=== PATIENT | female | born 1970 | race American Indian/Alaskan Native ===

== ENCOUNTER 2017-02-12 05:15 | Emergency (ER) | payer SELFPAY ==
[2017-02-12 05:47] LABS: Basophils % (Auto) 0.8 % (0.0-1.8); Eosinophils % (Auto) 1.6 % (0.0-4.3); Hematocrit 35.2 % (30.3-42.9); Hemoglobin 11.2 gm/dl (10.1-14.3); Mean Corpuscular HGB Conc 32 % (30-34); Mean Corpuscular Volume 74 fl (79-97); Platelet Count 338 K/mm3 (140-440); Red Blood Count 4.77 M/mm3 (3.65-5.03); Red Cell Distribution Width 13.4 % (13.2-15.2); White Blood Count 12.4 K/mm3 (4.5-11.0)
[2017-02-12 05:58] LABS: Mean Corpuscular Hemoglobin 24 pg (28-32)
[2017-02-12 06:04] LABS: Alanine Aminotransferase 10 units/L (7-56); Albumin/Globulin Ratio 1.4 %; Alkaline Phosphatase 64 units/L (35-129); Anion Gap 16 mmol/L; BUN/Creatinine Ratio 15; Blood Urea Nitrogen 9 mg/dL (7-17); Calcium 8.9 mg/dL (8.4-10.2); Carbon Dioxide 25 mmol/L (22-30); Chloride 99.4 mmol/L (98-107); Glucose 125 mg/dL (65-100); Lipase 21 units/L (13-60); Potassium 3.9 mmol/L (3.6-5.0); Sodium 136 mmol/L (137-145); Total Protein 6.9 g/dL (6.3-8.2)
[2017-02-12] MEDS ORDERED: ZOFRAN IV ONE ×2 (06:06→08:30)
[2017-02-12] MEDS ORDERED: DILAUDID IV ONE ×2 (06:06→07:47)
[2017-02-12] MEDS ORDERED: NACL 0.9% 1000 ML 1,000 ML ONE (06:13)
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
[2017-02-12] MEDS ORDERED: NACL 0.9% 1000 ML 1,000 ML IV ONE (06:30)
[2017-02-12] MEDS ORDERED: NACL ONE (07:01)
[2017-02-12] MEDS ORDERED: ZOFRAN ONE (08:48)
[2017-02-12 09:43] VITALS: BP 142/87
--- NOTE | 2017-02-12 10:21 | Cat Scan Report ---
FINAL REPORT EXAM: CT ABDOMEN PELVIS W CON HISTORY: lower abdominal pain TECHNIQUE: CT images are acquired through the Abdomen and Pelvis following intravenous administration of contrast. Transaxial, coronal and sagittal reformations are provided. PRIORS: None available FINDINGS: Partially visualized intrathoracic contents are unremarkable. Layering cholelithiasis without pericholecystic stranding. No intra or extrahepatic biliary ductal dilatation. The liver, pancreas, spleen, and adrenal glands are unremarkable. Kidneys show no worrisome lesions, hydronephrosis, or calculi. A couple of benign-appearing renal cysts are noted. Urinary bladder is unremarkable. Mid abdominal small bowel anastomotic sutures. There is mild wall thickening involving the terminal ileum. Diffuse fatty infiltration of the distal small bowel wall. There is circumferential mild bowel wall thickening involving the majority of the colon. Inflammatory stranding and edema are present focally adjacent to the sigmoid colon centered on several diverticula in the left lower quadrant on axial series 3, images 107-112. No pneumoperitoneum. Normal appendix. Aorta is normal in course and caliber. Anteverted uterus with fallopian contraceptive devices. Ventral periumbilical fat containing hernias measure up to 2 cm on axial series 3, image 95. Superficial soft tissues are otherwise unremarkable. No acute or aggressive appearing skeletal findings. IMPRESSION: Findings are most consistent with acute distal sigmoid diverticulitis without evident complication. These are superimposed on is mild diffuse circumferential colonic wall thickening and fatty infiltration of the distal small bowel wall, which may be due to underlying inflammatory bowel disease. Clinical correlation is requested. Colonoscopy follow-up is suggested following treatment for acute symptoms. Cholelithiasis.
== END 2017-02-12 09:45 | disposition home or self-care (01) ==
LOC: ED 05:15
DX: K57.92 Diverticulitis of intestine, part unspecified, without perforation or abscess without bleeding (principal); R10.30 Lower abdominal pain, unspecified; I10 Essential (primary) hypertension
CPT/HCPCS: 36415; 74177; 80053; 83690; 84703; 85025; 96361; 96374; 96375; 96376; 99284; J1170; J2405; J7030; Q9967

== ENCOUNTER 2018-07-07 00:10 | Inpatient (IN) | payer MEDICAID, OTHER ==
[2018-07-07 01:11] LABS: Basophils # (Auto) 0.1 K/mm3 (0.0-0.1); Basophils % (Auto) 0.4 % (0.0-1.8); Eosinophils % (Auto) 0.3 % (0.0-4.3); Hematocrit 28.4 % (30.3-42.9); Hemoglobin 8.9 gm/dl (10.1-14.3); Lymphocytes # (Auto) 0.9 K/mm3 (1.2-5.4); Mean Corpuscular HGB Conc 31 % (30-34); Mean Corpuscular Volume 72 fl (79-97); Monocytes # (Auto) 0.9 K/mm3 (0.0-0.8); Monocytes % (Auto) 7.3 % (0.0-7.3); Platelet Count 384 K/mm3 (140-440); Red Blood Count 3.92 M/mm3 (3.65-5.03); Red Cell Distribution Width 16.4 % (13.2-15.2)
[2018-07-07 01:34] LABS: Alanine Aminotransferase 26 units/L (7-56); Albumin 3.9 g/dL (3.9-5); BUN/Creatinine Ratio 13; Blood Urea Nitrogen 9 mg/dL (7-17); Calcium 9.4 mg/dL (8.4-10.2); Hemolysis Index 0
[2018-07-07 01:59] LABS: Bilirubin,Urine NEG (Negative); Blood,Urine SM (Negative); Color,Urine Yellow (Yellow); Mucus,Urine 2+ /HPF; Urobilinogen,Urine < 2.0 mg/dL (<2.0)
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
[2018-07-07] MEDS ORDERED: ZOFRAN IV ONE ×2 (02:49→04:20)
[2018-07-07] MEDS ORDERED: MORPHINE IV ONE ×2 (03:20→04:19)
[2018-07-07] MEDS ORDERED: NACL 0.9% 1000 ML 1,000 ML IV ONE (03:20)
--- NOTE | 2018-07-07 03:43 | Cat Scan Report ---
PROCEDURE: CT ABDOMEN PELVIS WO CON TECHNIQUE: Routine axial imaging was obtained of the abdomen and pelvis without oral or IV contrast. Sagittal and coronal reconstructions were reviewed. HISTORY: LLQ abdominal pain COMPARISONS: 02/03/2017 FINDINGS: The study is limited without IV contrast. The lung bases are negative for infiltrates or effusions. The gallbladder is normal in size and reveals dependent stones. There are no secondary signs of acute cholecystitis. The liver and biliary tree appear normal. The pancreas, spleen and adrenal glands nahomi ear normal. The kidneys show no evidence of stones or hydronephrosis. There is a stable 9.2 mm fatty density laterally in the right kidney. This may represent a small angiomyolipoma. There are multiple mildly distended loops of small bowel in the pelvis with air-fluid levels. The col on is normal in caliber. There are anastomotic suture lines involving bowel loops in the pelvis. The appendix is not seen with certainty. In the pelvis the uterus and bladder appear normal. There are bi lateral coxa valga wires and adnexa. Adenopathy is not seen. There is a stable small umbilical hernia containing omental fat. To the left of the umbilical hernia is a smaller abdominal wall hernia conta ining omental fat. The skeletal structures do not show any acute changes. IMPRESSION: Multiple mildly distended loops of small bowel in the pelvis with air-fluid levels. Diagnostic consid erations include a nonspecific enteritis as well as a partial mechanical small bowel obstruction. Gallstones. No secondary signs of acute cholecystitis. 9.2 mm fatty cortical density in the right kidney compatible with an incidental angiomyolipoma. Appendix not identified with certainty. Stable small umbilical and small periumbilical hernias both containing omental fat.. This document is electronically signed by Lencho Lieberman MD., July 07 2018 03:41:12 AM ET
[2018-07-07] MEDS ORDERED: ATIVAN IV ONE (05:29)
[2018-07-07] MEDS ORDERED: ATIVAN ONE (05:32)
--- NOTE | 2018-07-07 06:00 | XRay Report ---
PROCEDURE: XR CHEST 1V AP TECHNIQUE: A portable upright view of the chest was obtained. HISTORY: NG tube placement COMPARISONS: None FINDINGS: The heart size and mediastinum appear normal. The lungs are clear. Pleural fluid is not seen. The tip of NG tube is in good position the stomach. IMPRESSION: Satisfactory placement of NG tube. No acute cardiopulmonary process.. This document is electronically signed by Lencho Lieberman MD., July 07 2018 05:58:08 AM ET
[2018-07-07] MEDS: D5NS 1,000 ML IV SCH (08:15)
--- NOTE | 2018-07-07 09:00 | Event Note ---
Date: 07/07/18 Pt sleeping at this time. will return to do consult Pt very dehydrated. Will order additional fluids.
[2018-07-07] MEDS ORDERED: PROVENTIL IH PRN (09:26)
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
[2018-07-07] MEDS ORDERED: SODIUM CHLORIDE FLUSH SYRINGE 10 ML IV PRN (10:30)
[2018-07-07] MEDS ORDERED: TYLENOL PO PRN (10:30)
[2018-07-07] MEDS: ZOFRAN IV PRN ×2 (12:33→19:55)
[2018-07-07] MEDS: MORPHINE IV PRN ×3 (12:33→22:32)
[2018-07-07] MEDS: PEPCID IV SCH ×2 (12:33→21:48)
[2018-07-07] MEDS: SODIUM CHLORIDE FLUSH SYRINGE 10 ML IV SCH ×2 (12:38→21:49)
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
[2018-07-07] MEDS: NACL 0.9% 1000 ML 1,000 ML IV SCH ×2 (15:15→16:18)
[2018-07-07] MEDS: LEVAQUIN 500MG/100ML 500 MG/100 ML BAG IV SCH (17:19)
[2018-07-07] MEDS: FLAGYL 500 MG/100 ML 500 MG/100 ML BAG IV SCH (18:37)
[2018-07-07] MEDS ORDERED: DIFLUCAN/NS 100 MG/50 ML 100 MG/50 ML BAG IV SCH (20:00)
[2018-07-08] MEDS: D5NS 1,000 ML IV SCH (00:14)
[2018-07-08] MEDS: FLAGYL 500 MG/100 ML 500 MG/100 ML BAG IV SCH ×4 (00:15→21:41)
[2018-07-08] MEDS: MORPHINE IV PRN ×5 (03:24→23:45)
[2018-07-08] MEDS: ZOFRAN IV PRN ×3 (03:24→19:41)
[2018-07-08] MEDS: PEPCID IV SCH ×3 (08:43→21:43)
[2018-07-08] MEDS: LEVAQUIN 500MG/100ML 500 MG/100 ML BAG IV SCH ×2 (08:45→09:00)
[2018-07-08] MEDS: SODIUM CHLORIDE FLUSH SYRINGE 10 ML IV SCH ×3 (08:46→21:43)
[2018-07-08 09:06] LABS: Basophils # (Auto) 0.1 K/mm3 (0.0-0.1); Basophils % (Auto) 0.8 % (0.0-1.8); Eosinophils % (Auto) 0.1 % (0.0-4.3); Hematocrit 25.3 % (30.3-42.9); Hemoglobin 7.8 gm/dl (10.1-14.3); Lymphocytes % (Auto) 7.1 % (13.4-35.0); Mean Corpuscular HGB Conc 31 % (30-34); Mean Corpuscular Volume 72 fl (79-97); Monocytes # (Auto) 1.2 K/mm3 (0.0-0.8); Monocytes % (Auto) 8.7 % (0.0-7.3); Platelet Count 337 K/mm3 (140-440); Red Blood Count 3.52 M/mm3 (3.65-5.03); Red Cell Distribution Width 16.4 % (13.2-15.2)
[2018-07-08 09:10] LABS: BUN/Creatinine Ratio 4; Blood Urea Nitrogen 2 mg/dL (7-17); Calcium 8.4 mg/dL (8.4-10.2); Hemolysis Index 7
--- NOTE | 2018-07-08 10:19 | Cat Scan Report ---
CT ABDOMEN PELVIS WITH CONTRAST: HISTORY: Left lower quadrant abdominal pain. COMPARISON: Noncontrast CT abdomen and pelvis performed 07/07/18. TECHNIQUE: Helical CT in 1.25mm intervals following IV contrast. Sagittal and coronal reconstructions. FINDINGS: Lung bases: Normal. Liver: Normal. Biliary system: Multiple small calcified gallstones. No biliary dilatation or inflammation. Pancreas: Normal. Spleen: Normal. Kidneys/ureters/bladder: Within normal limits. 1 cm fat containing lesion in the right kidney is consistent with a lipoma or angiomyolipoma. Adrenal glands: Normal. Aorta: Normal. Intestines: There is a large amount of stool in the right hemicolon. No evidence for dilated bowel or large air-fluid levels. Surgical changes are noted in the left lower quadrant, correlate with history. There appear to be a few diverticula in the sigmoid colon but no convincing evidence of acute inflammation. There is a peripherally enhancing collection in the left lower quadrant measuring up to 3.0 x 2.3 x 5.2 cm. This appears to be within the left anterior pelvic wall. The inferior left rectus muscle appears thickened and edematous. Appendix: Not confidently identified. Pelvic viscera: Normal. Bilateral Essure devices are in place. Ascites: None. Adenopathy: None. Musculoskeletal: The bony structures are intact. Small paraumbilical hernia containing fat is unchanged. IMPRESSION: There is a small fluid collection in the left lower quadrant abdominal wall as outlined above. This appears to involve the inferior left rectus muscle and probably represents an intramuscular abscess. There are a few scattered diverticula in the sigmoid colon. No convincing acute diverticulitis is identified in my opinion.
--- NOTE | 2018-07-08 14:43 | Progress Note ---
Assessment and Plan - Patient Problems (1) Abdominal pain, left lower quadrant Current Visit: Yes Status: Acute Plan to address problem: Pt stable. Pt continues to have LLQ pain and may have more pain today. Will get CT A/P with IV con to further eval the LLQ. Rec: 1) Abx 2) Cont NGT for now 3) CT Abd/Pel with IV contrast today 4) Labs in AM Time=10min Subjective Date of service: 07/08/18 Patient Reports: Positive: still having pain (more today in LLQ), fever. Negative: nausea, vomiting Objective Vital Signs - 12hr 07/08/18 07/08/18 07/08/18 04:07 04:14 07:25 Temperature 101.4 F H 97.8 F 99.8 F H Pulse Rate 118 H 84 111 H Respiratory 16 18 18 Rate Blood Pressure 139/80 116/76 Blood Pressure 136/78 [Left] O2 Sat by Pulse 99 96 99 Oximetry 07/08/18 11:55 Temperature 99.0 F Pulse Rate 105 H Respiratory 18 Rate Blood Pressure Blood Pressure 136/75 [Left] O2 Sat by Pulse 100 Oximetry - General physical appearance other (awakened easily from sleep - appeared medicated) - Eyes normal occular movement - Respiratory normal expansion, normal respiratory effort - Abdomen soft, tender (mildly throughtout - most in LLQ), bowel sounds hypoactive, distended (very minimal), not guarding, not rigid, surgical scars (well healed) - Integumentary no rash, no growths, no abnormal pigmentation - Psychiatric oriented to time, oriented to person, oriented to place, speech is normal, memory intact - Labs 07/08/18 08:00 07/08/18 08:00 Diabetes panel 07/08/18 Range/Units 08:00 Sodium 134 L (137-145) mmol/L Potassium 4.2 (3.6-5.0) mmol/L Chloride 100.0 (98-107) mmol/L Carbon Dioxide 24 (22-30) mmol/L BUN 2 L (7-17) mg/dL Creatinine 0.5 L (0.7-1.2) mg/dL Glucose 120 H (65-100) mg/dL Calcium 8.4 (8.4-10.2) mg/dL Calcium panel 07/08/18 Range/Units 08:00 Calcium 8.4 (8.4-10.2) mg/dL Phosphorus 2.50 (2.5-4.5) mg/dL Pituitary panel 07/08/18 Range/Units 08:00 Sodium 134 L (137-145) mmol/L Potassium 4.2 (3.6-5.0) mmol/L Chloride 100.0 (98-107) mmol/L Carbon Dioxide 24 (22-30) mmol/L BUN 2 L (7-17) mg/dL Creatinine 0.5 L (0.7-1.2) mg/dL Glucose 120 H (65-100) mg/dL Calcium 8.4 (8.4-10.2) mg/dL Adrenal panel 07/08/18 Range/Units 08:00 Sodium 134 L (137-145) mmol/L Potassium 4.2 (3.6-5.0) mmol/L Chloride 100.0 (98-107) mmol/L Carbon Dioxide 24 (22-30) mmol/L BUN 2 L (7-17) mg/dL Creatinine 0.5 L (0.7-1.2) mg/dL Glucose 120 H (65-100) mg/dL Calcium 8.4 (8.4-10.2) mg/dL
--- NOTE | 2018-07-08 19:10 | Progress Note ---
Assessment and Plan Assessment and plan: Abscess abdominal wall rectus muscle Admitted to surgical floor NPO iv fluid Surgery following. I discussed with Dr. Cagle For IR drainage Fever r/o sepsis continue levaquin, flagyl Blood cultures drawn History of diverticulitis patient did not follow up afterwards History of exploratory laparotomy about 20yrs ago leukocyosis monitor Anemia Repeat Hgb in am Full code status History Interval history: Still having abd pain Fever Hospitalist Physical - Physical exam Narrative exam: Gen: Not in acute distress, lying in bed, NG tube in HEENT: Normocephalic, atraumatic Neck: supple, no JVD Heart: S1 and S2 reg, no murmurs, rubs or gallop Lungs: Clear, no crackles Abd: soft, tender left lower abd, non distended, normal BS Ext: No edema, no clubbing, no cyanosis, Neuro: AAO x 3, no focal signs, moves all ext Psych:Normal mood - Constitutional Vitals: Temp Pulse Resp BP Pulse Ox 99.5 F 110 H 17 146/79 100 07/08/18 15:45 07/08/18 15:45 07/08/18 15:45 07/08/18 15:45 07/08/18 15:45 Results - Labs CBC & Chem 7: 07/09/18 05:05 07/09/18 05:05 Labs: Laboratory Last Values WBC 13.4 K/mm3 (4.5-11.0) H 07/08/18 08:00 RBC 3.52 M/mm3 (3.65-5.03) L 07/08/18 08:00 Hgb 7.8 gm/dl (10.1-14.3) L 07/08/18 08:00 Hct 25.3 % (30.3-42.9) L 07/08/18 08:00 MCV 72 fl (79-97) L 07/08/18 08:00 MCH 22 pg (28-32) L 07/08/18 08:00 MCHC 31 % (30-34) 07/08/18 08:00 RDW 16.4 % (13.2-15.2) H 07/08/18 08:00 Plt Count 337 K/mm3 (140-440) 07/08/18 08:00 Lymph % (Auto) 7.1 % (13.4-35.0) L 07/08/18 08:00 [place] % (Auto) 8.7 % (0.0-7.3) H 07/08/18 08:00 Eos % (Auto) 0.1 % (0.0-4.3) 07/08/18 08:00 Baso % (Auto) 0.8 % (0.0-1.8) 07/08/18 08:00 Lymph # 1.0 K/mm3 (1.2-5.4) L 07/08/18 08:00 [place] # 1.2 K/mm3 (0.0-0.8) H 07/08/18 08:00 Eos # 0.0 K/mm3 (0.0-0.4) 07/08/18 08:00 Baso # 0.1 K/mm3 (0.0-0.1) 07/08/18 08:00 Seg Neutrophils % 83.3 % (40.0-70.0) H 07/08/18 08:00 Seg Neutrophils # 11.2 K/mm3 (1.8-7.7) H 07/08/18 08:00 Sodium 134 mmol/L (137-145) L 07/08/18 08:00 Potassium 4.2 mmol/L (3.6-5.0) 07/08/18 08:00 Chloride 100.0 mmol/L (98-107) 07/08/18 08:00 Carbon Dioxide 24 mmol/L (22-30) 07/08/18 08:00 Anion Gap 14 mmol/L 07/08/18 08:00 BUN 2 mg/dL (7-17) L 07/08/18 08:00 Creatinine 0.5 mg/dL (0.7-1.2) L 07/08/18 08:00 Estimated GFR > 60 ml/min 07/08/18 08:00 BUN/Creatinine Ratio 4 % 07/08/18 08:00 Glucose 120 mg/dL (65-100) H 07/08/18 08:00 POC Glucose 103 (70-105) 07/08/18 16:03 Calcium 8.4 mg/dL (8.4-10.2) 07/08/18 08:00 Phosphorus 2.50 mg/dL (2.5-4.5) 07/08/18 08:00 Magnesium 1.70 mg/dL (1.7-2.3) 07/08/18 08:00 Total Bilirubin 0.70 mg/dL (0.1-1.2) 07/07/18 00:43 AST 38 units/L (5-40) 07/07/18 00:43 ALT 26 units/L (7-56) 07/07/18 00:43 Alkaline Phosphatase 82 units/L (35-129) 07/07/18 00:43 Total Protein 7.4 g/dL (6.3-8.2) 07/07/18 00:43 Albumin 3.9 g/dL (3.9-5) 07/07/18 00:43 Albumin/Globulin Ratio 1.1 % 07/07/18 00:43 Lipase 12 units/L (13-60) L 07/07/18 00:43 HCG, Qual Negative (Negative) 07/07/18 00:43 Urine Color Yellow (Yellow) 07/07/18 Unknown Urine Turbidity Clear (Clear) 07/07/18 Unknown Urine pH 5.0 (5.0-7.0) 07/07/18 Unknown Ur Specific [place] 1.039 (1.003-1.030) H 07/07/18 Unknown Urine Protein 30 mg/dl mg/dL (Negative) 07/07/18 Unknown Urine Glucose (UA) Neg mg/dL (Negative) 07/07/18 Unknown Urine Ketones 80 mg/dL (Negative) 07/07/18 Unknown Urine Blood Sm (Negative) 07/07/18 Unknown Urine Nitrite Neg (Negative) 07/07/18 Unknown Urine Bilirubin Neg (Negative) 07/07/18 Unknown Urine Urobilinogen < 2.0 mg/dL (<2.0) 07/07/18 Unknown Ur Leukocyte Esterase Neg (Negative) 07/07/18 Unknown Urine WBC (Auto) 2.0 /HPF (0.0-6.0) 07/07/18 Unknown Urine RBC (Auto) 21.0 /HPF (0.0-6.0) 07/07/18 Unknown U Epithel Cells (Auto) 1.0 /HPF (0-13.0) 07/07/18 Unknown Urine Mucus 2+ /HPF 07/07/18 Unknown Active Medications - Current Medications Current Medications: Generic Name Dose Route Start Last Admin Trade Name Freq PRN Reason Stop Dose Admin Acetaminophen 650 mg 07/07/18 10:30 07/07/18 13:55 Tylenol PO 650 mg Q4H PRN Administration Pain MILD(1-3)/Fever >100.5/TARANGO Albuterol 2.5 mg 07/07/18 09:26 Proventil IH Q4HRT PRN Shortness Of Breath Famotidine 20 mg 07/07/18 11:00 07/08/18 09:01 Pepcid IV Not Given BID [facility] Dextrose/Sodium Chloride 1,000 mls @ 100 mls/hr 07/07/18 08:00 07/08/18 00:14 D5ns IV 100 mls/hr DIRECT [place]UNCAN Administration Levofloxacin/Dextrose 500 mg in 100 mls @ 100 mls/hr 07/07/18 17:00 07/08/18 09:00 Levaquin 500mg/100ml IV Not Given Q24HR D[facility]AN Protocol Metronidazole 500 mg in 100 mls @ 100 mls/hr 07/07/18 17:00 07/08/18 15:11 Flagyl 500 Mg/100 Ml IV 100 mls/hr Q8HR DUNCAN Administration Protocol Morphine Sulfate 2 mg 07/07/18 10:30 07/08/18 15:14 Morphine IV 2 mg Q4H PRN Administration Pain, Moderate (4-6) Ondansetron HCl 4 mg 07/07/18 11:30 07/08/18 11:31 Zofran IV 4 mg Q8H PRN Administration Nausea And Vomiting Sodium Chloride 10 ml 07/07/18 11:00 07/08/18 09:01 Sodium Chloride Flush Syringe 10 Ml IV Not Given BID [place]AN Sodium Chloride 10 ml 07/07/18 10:30 Sodium Chloride Flush Syringe 10 Ml IV PRN PRN LINE FLUSH
[2018-07-09] MEDS: MORPHINE IV PRN ×3 (03:55→14:45)
[2018-07-09 05:56] LABS: Basophils % (Auto) 0.4 % (0.0-1.8); Hematocrit 25.3 % (30.3-42.9); Hemoglobin 8.1 gm/dl (10.1-14.3); Lymphocytes % (Auto) 7.4 % (13.4-35.0); Mean Corpuscular HGB Conc 32 % (30-34); Mean Corpuscular Volume 70 fl (79-97); Monocytes # (Auto) 1.3 K/mm3 (0.0-0.8); Monocytes % (Auto) 10.1 % (0.0-7.3); Platelet Count 373 K/mm3 (140-440); Red Blood Count 3.59 M/mm3 (3.65-5.03); Red Cell Distribution Width 15.8 % (13.2-15.2)
[2018-07-09 06:00] LABS: INR 1.15 (0.87-1.13); Partial Thromboplastin Time 41.6 Sec. (24.2-36.6)
[2018-07-09] MEDS: FLAGYL 500 MG/100 ML 500 MG/100 ML BAG IV SCH ×3 (06:10→21:08)
[2018-07-09 06:25] LABS: BUN/Creatinine Ratio 6; Blood Urea Nitrogen 3 mg/dL (7-17); Calcium 8.8 mg/dL (8.4-10.2); Hemolysis Index 0
[2018-07-09] MEDS: PEPCID IV SCH ×3 (08:48→21:08)
[2018-07-09] MEDS: ZOFRAN IV PRN (08:54)
[2018-07-09] MEDS ORDERED: NARCAN 0.4 MG/1 ML IV PRN (08:56)
[2018-07-09] MEDS: LEVAQUIN 500MG/100ML 500 MG/100 ML BAG IV SCH (08:59)
--- NOTE | 2018-07-09 09:09 | Progress Note ---
Assessment and Plan - Patient Problems (1) Abdominal pain, left lower quadrant Current Visit: Yes Status: Acute Plan to address problem: Pt stable. Appears to be an abscess in the abdominal wall in the LLQ. Have spoken with Dr. Iniguez. He will plan for aspiration today. Will also add [employer] and toradol for pain control. Discussed with Dr. Knight. Rec: 1) Abx 2) Cont NGT for now. Clamp trial today 3) CT guided aspiration of fluid collection today 4) [employer] and toradol Time=10min Subjective Date of service: 07/09/18 Patient Reports: Positive: still having pain, flatus, nausea (minimal). Negative: vomiting Objective Vital Signs - 12hr 07/09/18 07/09/18 07/09/18 00:40 03:47 08:46 Temperature 99.6 F 99.5 F Pulse Rate 107 H 105 H Respiratory 18 18 20 Rate Blood Pressure 150/84 137/83 O2 Sat by Pulse 100 97 Oximetry - General physical appearance no distress, no pain, other (looks slightly better) - Respiratory normal expansion, normal respiratory effort - Abdomen soft, tender (less in rest of abdomen), bowel sounds hypoactive, not distended, not guarding, not rigid - Integumentary no rash, no growths, no abnormal pigmentation - Psychiatric oriented to time, oriented to person, oriented to place, speech is normal, memory intact - Labs 07/09/18 05:05 07/09/18 05:05 Diabetes panel 07/08/18 07/09/18 Range/Units 08:00 05:05 Sodium 134 L 137 (137-145) mmol/L Potassium 4.2 3.3 L D (3.6-5.0) mmol/L Chloride 100.0 97.9 L (98-107) mmol/L Carbon Dioxide 24 24 (22-30) mmol/L BUN 2 L 3 L (7-17) mg/dL Creatinine 0.5 L 0.5 L (0.7-1.2) mg/dL Glucose 120 H 113 H (65-100) mg/dL Calcium 8.4 8.8 (8.4-10.2) mg/dL Calcium panel 07/08/18 07/09/18 Range/Units 08:00 05:05 Calcium 8.4 8.8 (8.4-10.2) mg/dL Phosphorus 2.50 (2.5-4.5) mg/dL Pituitary panel 07/08/18 07/09/18 Range/Units 08:00 05:05 Sodium 134 L 137 (137-145) mmol/L Potassium 4.2 3.3 L D (3.6-5.0) mmol/L Chloride 100.0 97.9 L (98-107) mmol/L Carbon Dioxide 24 24 (22-30) mmol/L BUN 2 L 3 L (7-17) mg/dL Creatinine 0.5 L 0.5 L (0.7-1.2) mg/dL Glucose 120 H 113 H (65-100) mg/dL Calcium 8.4 8.8 (8.4-10.2) mg/dL Adrenal panel 07/08/18 07/09/18 Range/Units 08:00 05:05 Sodium 134 L 137 (137-145) mmol/L Potassium 4.2 3.3 L D (3.6-5.0) mmol/L Chloride 100.0 97.9 L (98-107) mmol/L Carbon Dioxide 24 24 (22-30) mmol/L BUN 2 L 3 L (7-17) mg/dL Creatinine 0.5 L 0.5 L (0.7-1.2) mg/dL Glucose 120 H 113 H (65-100) mg/dL Calcium 8.4 8.8 (8.4-10.2) mg/dL - Imaging CT scan - abdomen: report reviewed, image reviewed CT Scan - head: report reviewed, image reviewed
[2018-07-09] MEDS: SODIUM CHLORIDE FLUSH SYRINGE 10 ML IV SCH (09:31)
--- NOTE | 2018-07-09 09:40 | Progress Note ---
Assessment and Plan Assessment and plan: Abscess abdominal wall rectus muscle Admitted to surgical floor NPO iv fluid Surgery following. I discussed with Dr. Cagle For IR drainage today Fever Hypokalemia. Replace Sepsis,present on admission continue levaquin, flagyl Blood cultures drawn History of diverticulitis patient did not follow up afterwards History of exploratory laparotomy about 20yrs ago leukocyosis monitor Anemia Repeat Hgb in am Full code status History Interval history: Still having abdominal pain Fever Hospitalist Physical - Physical exam Narrative exam: Gen: Not in acute distress, lying in bed, NG tube in HEENT: Normocephalic, atraumatic Neck: supple, no JVD Heart: S1 and S2 reg, no murmurs, rubs or gallop Lungs: Clear, no crackles Abd: soft, tender left lower abd, non distended, normal BS Ext: No edema, no clubbing, no cyanosis, Neuro: AAO x 3, no focal signs, moves all ext Psych:Normal mood - Constitutional Vitals: Temp Pulse Resp BP Pulse Ox 99.5 F 105 H 20 137/83 97 07/09/18 03:47 07/09/18 03:47 07/09/18 08:46 07/09/18 03:47 07/09/18 03:47 Results - Labs CBC & Chem 7: 07/09/18 05:05 07/09/18 05:05 Labs: Laboratory Last Values WBC 13.1 K/mm3 (4.5-11.0) H 07/09/18 05:05 RBC 3.59 M/mm3 (3.65-5.03) L 07/09/18 05:05 Hgb 8.1 gm/dl (10.1-14.3) L 07/09/18 05:05 Hct 25.3 % (30.3-42.9) L 07/09/18 05:05 MCV 70 fl (79-97) L 07/09/18 05:05 MCH 22 pg (28-32) L 07/09/18 05:05 MCHC 32 % (30-34) 07/09/18 05:05 RDW 15.8 % (13.2-15.2) H 07/09/18 05:05 Plt Count 373 K/mm3 (140-440) 07/09/18 05:05 Lymph % (Auto) 7.4 % (13.4-35.0) L 07/09/18 05:05 [place] % (Auto) 10.1 % (0.0-7.3) H 07/09/18 05:05 Eos % (Auto) 0.0 % (0.0-4.3) 07/09/18 05:05 Baso % (Auto) 0.4 % (0.0-1.8) 07/09/18 05:05 Lymph # 1.0 K/mm3 (1.2-5.4) L 07/09/18 05:05 [place] # 1.3 K/mm3 (0.0-0.8) H 07/09/18 05:05 Eos # 0.0 K/mm3 (0.0-0.4) 07/09/18 05:05 Baso # 0.0 K/mm3 (0.0-0.1) 07/09/18 05:05 Seg Neutrophils % 82.1 % (40.0-70.0) H 07/09/18 05:05 Seg Neutrophils # 10.8 K/mm3 (1.8-7.7) H 07/09/18 05:05 PT 15.4 Sec. (12.2-14.9) H 07/09/18 05:05 INR 1.15 (0.87-1.13) H 07/09/18 05:05 APTT 41.6 Sec. (24.2-36.6) H 07/09/18 05:05 Sodium 137 mmol/L (137-145) 07/09/18 05:05 Potassium 3.3 mmol/L (3.6-5.0) L D 07/09/18 05:05 Chloride 97.9 mmol/L (98-107) L 07/09/18 05:05 Carbon Dioxide 24 mmol/L (22-30) 07/09/18 05:05 Anion Gap 18 mmol/L 07/09/18 05:05 BUN 3 mg/dL (7-17) L 07/09/18 05:05 Creatinine 0.5 mg/dL (0.7-1.2) L 07/09/18 05:05 Estimated GFR > 60 ml/min 07/09/18 05:05 BUN/Creatinine Ratio 6 % 07/09/18 05:05 Glucose 113 mg/dL (65-100) H 07/09/18 05:05 POC Glucose 114 (70-105) H 07/08/18 22:22 Calcium 8.8 mg/dL (8.4-10.2) 07/09/18 05:05 Phosphorus 2.50 mg/dL (2.5-4.5) 07/08/18 08:00 Magnesium 1.70 mg/dL (1.7-2.3) 07/08/18 08:00 Total Bilirubin 0.70 mg/dL (0.1-1.2) 07/07/18 00:43 AST 38 units/L (5-40) 07/07/18 00:43 ALT 26 units/L (7-56) 07/07/18 00:43 Alkaline Phosphatase 82 units/L (35-129) 07/07/18 00:43 Total Protein 7.4 g/dL (6.3-8.2) 07/07/18 00:43 Albumin 3.9 g/dL (3.9-5) 07/07/18 00:43 Albumin/Globulin Ratio 1.1 % 07/07/18 00:43 Lipase 12 units/L (13-60) L 07/07/18 00:43 HCG, Qual Negative (Negative) 07/07/18 00:43 Urine Color Yellow (Yellow) 07/07/18 Unknown Urine Turbidity Clear (Clear) 07/07/18 Unknown Urine pH 5.0 (5.0-7.0) 07/07/18 Unknown Ur Specific [place] 1.039 (1.003-1.030) H 07/07/18 Unknown Urine Protein 30 mg/dl mg/dL (Negative) 07/07/18 Unknown Urine Glucose (UA) Neg mg/dL (Negative) 07/07/18 Unknown Urine Ketones 80 mg/dL (Negative) 07/07/18 Unknown Urine Blood Sm (Negative) 07/07/18 Unknown Urine Nitrite Neg (Negative) 07/07/18 Unknown Urine Bilirubin Neg (Negative) 07/07/18 Unknown Urine Urobilinogen < 2.0 mg/dL (<2.0) 07/07/18 Unknown Ur Leukocyte Esterase Neg (Negative) 07/07/18 Unknown Urine WBC (Auto) 2.0 /HPF (0.0-6.0) 07/07/18 Unknown Urine RBC (Auto) 21.0 /HPF (0.0-6.0) 07/07/18 Unknown U Epithel Cells (Auto) 1.0 /HPF (0-13.0) 07/07/18 Unknown Urine Mucus 2+ /HPF 07/07/18 Unknown Active Medications - Current Medications Current Medications: Generic Name Dose Route Start Last Admin Trade Name Freq PRN Reason Stop Dose Admin Acetaminophen 650 mg 07/07/18 10:30 07/07/18 13:55 Tylenol PO 650 mg Q4H PRN Administration Pain MILD(1-3)/Fever >100.5/TARANGO Albuterol 2.5 mg 07/07/18 09:26 Proventil IH Q4HRT PRN Shortness Of Breath Famotidine 20 mg 07/07/18 11:00 07/09/18 08:48 Pepcid IV 20 mg BID DUNCAN Administration Hydromorphone/Sodium Chloride 0 mg 07/09/18 09:00 Dilaudid Puncher 6mg/30ml IV DIRECT DUNCAN Protocol Dextrose/Sodium Chloride 1,000 mls @ 100 mls/hr 07/07/18 08:00 07/08/18 00:14 D5ns IV 100 mls/hr DIRECT DUNCAN Administration Levofloxacin/Dextrose 500 mg in 100 mls @ 100 mls/hr 07/07/18 17:00 07/09/18 08:59 Levaquin 500mg/100ml IV 100 mls/hr Q24HR DUNCAN Administration Protocol Metronidazole 500 mg in 100 mls @ 100 mls/hr 07/07/18 17:00 07/09/18 06:10 Flagyl 500 Mg/100 Ml IV 100 mls/hr Q8HR DUNCAN Administration Protocol Sodium Chloride 1,000 mls @ 42 mls/hr 07/09/18 09:00 Nacl 0.9% 1000 Ml IV DIRECT DUNCAN Ketorolac Tromethamine 30 mg 07/09/18 18:00 Toradol IV 07/14/18 17:59 Q6HR DUNCAN Morphine Sulfate 2 mg 07/07/18 10:30 07/09/18 08:46 Morphine IV 2 mg Q4H PRN Administration Pain, Moderate (4-6) Naloxone HCl 0.1 mg 07/09/18 08:56 Narcan 0.4 Mg/1 Ml IV Q2MIN PRN Res Rate </= 8 or 02 SAT < 92% Ondansetron HCl 4 mg 07/07/18 11:30 07/09/18 08:54 Zofran IV 4 mg Q8H PRN Administration Nausea And Vomiting Sodium Chloride 10 ml 07/07/18 11:00 07/08/18 21:43 Sodium Chloride Flush Syringe 10 Ml IV 10 ml BID DUNCAN Administration Sodium Chloride 10 ml 07/07/18 10:30 Sodium Chloride Flush Syringe 10 Ml IV PRN PRN LINE FLUSH
[2018-07-09] MEDS ORDERED: VERSED IV ONE ×2 (10:57→11:16)
[2018-07-09] MEDS ORDERED: SUBLIMAZE IV ONE (10:57)
[2018-07-09] MEDS ORDERED: NACL 0.9% 500 ML 0 ML ONE (11:05)
[2018-07-09] MEDS ORDERED: SUBLIMAZE ONE (11:16)
[2018-07-09] MEDS ORDERED: XYLOCAINE 1%/ EPI 1:100,000 INFILTRATI ONE ×2 (12:19→12:20)
--- NOTE | 2018-07-09 13:02 | Post Operative Note ---
Date of procedure: 07/09/18 Pre-op diagnosis: Fluid collection of the abdomen LLQ Post-op diagnosis: same Findings: Purulent material and old blood aspirated - 2-3 mL Procedure: CT guided guided aspiration of LLQ fluid collection Anesthesia: local (w/ conscious sedation) Surgeon: MAN STANFORD Estimated blood loss: minimal Condition: stable Disposition: floor
[2018-07-09] MEDS: DILAUDID PCA 6MG/30ML IV SCH (16:33)
[2018-07-09] MEDS: TORADOL IV SCH (19:15)
[2018-07-10] MEDS: TORADOL IV SCH ×4 (00:50→22:34)
[2018-07-10] MEDS: SODIUM CHLORIDE FLUSH SYRINGE 10 ML IV SCH ×3 (00:50→22:35)
[2018-07-10] MEDS: FLAGYL 500 MG/100 ML 500 MG/100 ML BAG IV SCH ×3 (05:35→22:31)
[2018-07-10] MEDS: NACL 0.9% 1000 ML 1,000 ML IV SCH (05:35)
[2018-07-10 06:33] LABS: Hematocrit 25.7 % (30.3-42.9); Mean Corpuscular HGB Conc 31 % (30-34); Mean Corpuscular Volume 71 fl (79-97); Platelet Count 423 K/mm3 (140-440); Red Blood Count 3.63 M/mm3 (3.65-5.03)
[2018-07-10 07:02] LABS: BUN/Creatinine Ratio 14; Blood Urea Nitrogen 7 mg/dL (7-17); Calcium 8.7 mg/dL (8.4-10.2); Hemolysis Index 0
[2018-07-10] MEDS: PEPCID IV SCH ×2 (11:59→22:33)
[2018-07-10] MEDS: LEVAQUIN 500MG/100ML 500 MG/100 ML BAG IV SCH (11:59)
--- NOTE | 2018-07-10 12:30 | Progress Note ---
Assessment and Plan Assessment and plan: Abscess abdominal wall rectus muscle s/p IR drainage yesterday 07/09 Started on clear liq diet Surgery following. Hypokalemia. Replace Sepsis,present on admission continue levaquin, flagyl Blood cultures drawn Cultures from abscess pending History of diverticulitis patient did not follow up afterwards History of exploratory laparotomy about 20yrs ago leukocyosis due to sepsis monitor Fever, improved no fever for 2 days Anemia Repeat Hgb in am Full code status History Interval history: s/p IR drainage of abscess abdominal wall yesterday, less abd pain on PCP pump Hospitalist Physical - Physical exam Narrative exam: Gen: Not in acute distress, lying in bed, NG tube in HEENT: Normocephalic, atraumatic Neck: supple, no JVD Heart: S1 and S2 reg, no murmurs, rubs or gallop Lungs: Clear, no crackles Abd: soft, mild tender left lower abd, dressing over abd, non distended, normal BS Ext: No edema, no clubbing, no cyanosis, Neuro: AAO x 3, no focal signs, moves all ext Psych:Normal mood - Constitutional Vitals: Temp Pulse Resp BP Pulse Ox 98.3 F 94 H 18 119/77 99 07/10/18 07:25 07/10/18 07:25 07/10/18 08:33 07/10/18 07:25 07/10/18 08:41 Results - Labs CBC & Chem 7: 07/10/18 06:14 07/10/18 06:14 Labs: Laboratory Last Values WBC 11.3 K/mm3 (4.5-11.0) H 07/10/18 06:14 RBC 3.63 M/mm3 (3.65-5.03) L 07/10/18 06:14 Hgb 8.0 gm/dl (10.1-14.3) L 07/10/18 06:14 Hct 25.7 % (30.3-42.9) L 07/10/18 06:14 MCV 71 fl (79-97) L 07/10/18 06:14 MCH 22 pg (28-32) L 07/10/18 06:14 MCHC 31 % (30-34) 07/10/18 06:14 RDW 16.0 % (13.2-15.2) H 07/10/18 06:14 Plt Count 423 K/mm3 (140-440) 07/10/18 06:14 Lymph % (Auto) 7.4 % (13.4-35.0) L 07/09/18 05:05 [place] % (Auto) 10.1 % (0.0-7.3) H 07/09/18 05:05 Eos % (Auto) 0.0 % (0.0-4.3) 07/09/18 05:05 Baso % (Auto) 0.4 % (0.0-1.8) 07/09/18 05:05 Lymph # 1.0 K/mm3 (1.2-5.4) L 07/09/18 05:05 [place] # 1.3 K/mm3 (0.0-0.8) H 07/09/18 05:05 Eos # 0.0 K/mm3 (0.0-0.4) 07/09/18 05:05 Baso # 0.0 K/mm3 (0.0-0.1) 07/09/18 05:05 Seg Neutrophils % 82.1 % (40.0-70.0) H 07/09/18 05:05 Seg Neutrophils # 10.8 K/mm3 (1.8-7.7) H 07/09/18 05:05 PT 15.4 Sec. (12.2-14.9) H 07/09/18 05:05 INR 1.15 (0.87-1.13) H 07/09/18 05:05 APTT 41.6 Sec. (24.2-36.6) H 07/09/18 05:05 Sodium 141 mmol/L (137-145) 07/10/18 06:14 Potassium 3.6 mmol/L (3.6-5.0) 07/10/18 06:14 Chloride 100.8 mmol/L (98-107) 07/10/18 06:14 Carbon Dioxide 22 mmol/L (22-30) 07/10/18 06:14 Anion Gap 22 mmol/L 07/10/18 06:14 BUN 7 mg/dL (7-17) 07/10/18 06:14 Creatinine 0.5 mg/dL (0.7-1.2) L 07/10/18 06:14 Estimated GFR > 60 ml/min 07/10/18 06:14 BUN/Creatinine Ratio 14 % 07/10/18 06:14 Glucose 94 mg/dL (65-100) 07/10/18 06:14 POC Glucose 114 (70-105) H 07/08/18 22:22 Lactic Acid 0.60 mmol/L (0.7-2.0) L 07/09/18 17:41 Calcium 8.7 mg/dL (8.4-10.2) 07/10/18 06:14 Phosphorus 2.50 mg/dL (2.5-4.5) 07/08/18 08:00 Magnesium 1.70 mg/dL (1.7-2.3) 07/08/18 08:00 Total Bilirubin 0.70 mg/dL (0.1-1.2) 07/07/18 00:43 AST 38 units/L (5-40) 07/07/18 00:43 ALT 26 units/L (7-56) 07/07/18 00:43 Alkaline Phosphatase 82 units/L (35-129) 07/07/18 00:43 Total Protein 7.4 g/dL (6.3-8.2) 07/07/18 00:43 Albumin 3.9 g/dL (3.9-5) 07/07/18 00:43 Albumin/Globulin Ratio 1.1 % 07/07/18 00:43 Lipase 12 units/L (13-60) L 07/07/18 00:43 HCG, Qual Negative (Negative) 07/07/18 00:43 Urine Color Yellow (Yellow) 07/07/18 Unknown Urine Turbidity Clear (Clear) 07/07/18 Unknown Urine pH 5.0 (5.0-7.0) 07/07/18 Unknown Ur Specific [place] 1.039 (1.003-1.030) H 07/07/18 Unknown Urine Protein 30 mg/dl mg/dL (Negative) 07/07/18 Unknown Urine Glucose (UA) Neg mg/dL (Negative) 07/07/18 Unknown Urine Ketones 80 mg/dL (Negative) 07/07/18 Unknown Urine Blood Sm (Negative) 07/07/18 Unknown Urine Nitrite Neg (Negative) 07/07/18 Unknown Urine Bilirubin Neg (Negative) 07/07/18 Unknown Urine Urobilinogen < 2.0 mg/dL (<2.0) 07/07/18 Unknown Ur Leukocyte Esterase Neg (Negative) 07/07/18 Unknown Urine WBC (Auto) 2.0 /HPF (0.0-6.0) 07/07/18 Unknown Urine RBC (Auto) 21.0 /HPF (0.0-6.0) 07/07/18 Unknown U Epithel Cells (Auto) 1.0 /HPF (0-13.0) 07/07/18 Unknown Urine Mucus 2+ /HPF 07/07/18 Unknown Active Medications - Current Medications Current Medications: Generic Name Dose Route Start Last Admin Trade Name Freq PRN Reason Stop Dose Admin Acetaminophen 650 mg 07/07/18 10:30 07/07/18 13:55 Tylenol PO 650 mg Q4H PRN Administration Pain MILD(1-3)/Fever >100.5/TARANGO Albuterol 2.5 mg 07/07/18 09:26 Proventil IH Q4HRT PRN Shortness Of Breath Famotidine 20 mg 07/07/18 11:00 07/10/18 11:59 Pepcid IV 20 mg BID DUNCAN Administration Hydromorphone/Sodium Chloride 0 mg 07/09/18 09:00 07/09/18 16:33 Dilaudid Supervisor Transferring [employer]ing 6mg/30ml IV 0.2 mg DIRECT DUNCAN Administration Protocol Dextrose/Sodium Chloride 1,000 mls @ 100 mls/hr 07/07/18 08:00 07/08/18 00:14 D5ns IV 100 mls/hr DIRECT DUNCAN Administration Levofloxacin/Dextrose 500 mg in 100 mls @ 100 mls/hr 07/07/18 17:00 07/10/18 11:59 Levaquin 500mg/100ml IV 100 mls/hr Q24HR DUNCAN Administration Protocol Metronidazole 500 mg in 100 mls @ 100 mls/hr 07/07/18 17:00 07/10/18 07:26 Flagyl 500 Mg/100 Ml IV Infused Q8HR DUNCAN Infusion Protocol Sodium Chloride 1,000 mls @ 42 mls/hr 07/09/18 09:00 07/10/18 05:35 Nacl 0.9% 1000 Ml IV 42 mls/hr DIRECT DUNCAN Administration Ketorolac Tromethamine 30 mg 07/09/18 18:00 07/10/18 05:35 Toradol IV 07/14/18 17:59 30 mg Q6HR DUNCAN Administration Morphine Sulfate 2 mg 07/07/18 10:30 07/09/18 14:45 Morphine IV 2 mg Q4H PRN Administration Pain, Moderate (4-6) Naloxone HCl 0.1 mg 07/09/18 08:56 Narcan 0.4 Mg/1 Ml IV Q2MIN PRN Res Rate </= 8 or 02 SAT < 92% Ondansetron HCl 4 mg 07/07/18 11:30 07/09/18 08:54 Zofran IV 4 mg Q8H PRN Administration Nausea And Vomiting Sodium Chloride 10 ml 07/07/18 11:00 07/10/18 11:59 Sodium Chloride Flush Syringe 10 Ml IV 10 ml BID DUNCAN Administration Sodium Chloride 10 ml 07/07/18 10:30 Sodium Chloride Flush Syringe 10 Ml IV PRN PRN LINE FLUSH
--- NOTE | 2018-07-10 13:48 | Progress Note ---
Assessment and Plan (1) Abdominal pain, left lower quadrant Current Visit: Yes Status: Acute Plan to address problem: Pt stable. S/P drainage of abscess of abdominal wall by Dr. Iniguez. Rec: 1) Abx 2) continue clear liquids, adv to full in am 3) follow up cultures 4) will likely dc FEATHER STITCHER in am and start PO abx 5) Claritin D for sinuses Thank you, please call with questions Subjective Date of service: 07/10/18 Narrative: Pt seen and examined. c/o headache due to sinus pressure. No abdominal pain, f/c, vomiting. She has not been ambulating due. She has been passing flatus and having loose BMs. Tolerating clear liquid diet Objective Vital Signs - 12hr 07/10/18 07/10/18 07/10/18 02:33 04:33 04:36 Temperature 97.8 F Pulse Rate 82 Respiratory 17 17 16 Rate Blood Pressure 127/71 Blood Pressure [Left] O2 Sat by Pulse 99 Oximetry 07/10/18 07/10/18 07/10/18 06:33 07:25 08:33 Temperature 98.3 F Pulse Rate 94 H Respiratory 17 18 18 Rate Blood Pressure Blood Pressure 119/77 [Left] O2 Sat by Pulse 99 Oximetry 07/10/18 07/10/18 08:41 11:45 Temperature 98.4 F Pulse Rate 91 H Respiratory 18 Rate Blood Pressure Blood Pressure 144/80 [Left] O2 Sat by Pulse 99 100 Oximetry - General physical appearance Narrative Exam: Gen: AAOx3. NAD CV: s1, S2+ resp; even and unlabored Abd: soft, NT, ND Ext: no c/c/e - Labs 07/10/18 06:14 07/10/18 06:14 Diabetes panel 07/10/18 Range/Units 06:14 Sodium 141 (137-145) mmol/L Potassium 3.6 (3.6-5.0) mmol/L Chloride 100.8 (98-107) mmol/L Carbon Dioxide 22 (22-30) mmol/L BUN 7 (7-17) mg/dL Creatinine 0.5 L (0.7-1.2) mg/dL Glucose 94 (65-100) mg/dL Calcium 8.7 (8.4-10.2) mg/dL Calcium panel 07/10/18 Range/Units 06:14 Calcium 8.7 (8.4-10.2) mg/dL Pituitary panel 07/10/18 Range/Units 06:14 Sodium 141 (137-145) mmol/L Potassium 3.6 (3.6-5.0) mmol/L Chloride 100.8 (98-107) mmol/L Carbon Dioxide 22 (22-30) mmol/L BUN 7 (7-17) mg/dL Creatinine 0.5 L (0.7-1.2) mg/dL Glucose 94 (65-100) mg/dL Calcium 8.7 (8.4-10.2) mg/dL Adrenal panel 07/10/18 Range/Units 06:14 Sodium 141 (137-145) mmol/L Potassium 3.6 (3.6-5.0) mmol/L Chloride 100.8 (98-107) mmol/L Carbon Dioxide 22 (22-30) mmol/L BUN 7 (7-17) mg/dL Creatinine 0.5 L (0.7-1.2) mg/dL Glucose 94 (65-100) mg/dL Calcium 8.7 (8.4-10.2) mg/dL
[2018-07-10] MEDS: CLARITIN-D 24HR PO SCH (16:09)
[2018-07-10] MEDS: ZOFRAN IV PRN (20:11)
[2018-07-10] MEDS: DILAUDID PCA 6MG/30ML IV SCH (20:35)
[2018-07-11] MEDS: TORADOL IV SCH ×4 (00:25→17:42)
[2018-07-11] MEDS: D5NS 1,000 ML IV SCH (02:21)
[2018-07-11] MEDS: NACL 0.9% 1000 ML 1,000 ML IV SCH (02:29)
[2018-07-11 04:47] LABS: Hematocrit 23.9 % (30.3-42.9); Hemoglobin 7.6 gm/dl (10.1-14.3); Mean Corpuscular HGB Conc 32 % (30-34); Mean Corpuscular Volume 71 fl (79-97); Platelet Count 444 K/mm3 (140-440); Red Cell Distribution Width 16.5 % (13.2-15.2)
[2018-07-11 05:09] LABS: BUN/Creatinine Ratio 10; Blood Urea Nitrogen 4 mg/dL (7-17); Calcium 8.5 mg/dL (8.4-10.2); Hemolysis Index 0
[2018-07-11] MEDS: FLAGYL 500 MG/100 ML 500 MG/100 ML BAG IV SCH ×3 (05:27→22:02)
[2018-07-11] MEDS: PEPCID IV SCH ×2 (09:34→22:02)
[2018-07-11] MEDS: CLARITIN-D 24HR PO SCH ×2 (09:34→09:35)
[2018-07-11] MEDS: LEVAQUIN 500MG/100ML 500 MG/100 ML BAG IV SCH (09:34)
[2018-07-11] MEDS: SODIUM CHLORIDE FLUSH SYRINGE 10 ML IV SCH ×2 (09:35→22:02)
[2018-07-11] MEDS: ZOFRAN IV PRN ×2 (10:11→22:28)
[2018-07-11] MEDS: KCL 10MEQ/100ML 10 MEQ/100 ML BAG IV SCH ×2 (11:09→21:25)
--- NOTE | 2018-07-11 11:20 | Progress Note ---
Assessment and Plan Assessment and plan: Abscess abdominal wall rectus muscle s/p IR drainage yesterday 07/09 Started on clear liq diet Surgery following. 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 Replace Constipation Give Miralax prn Sepsis,present on admission continue levaquin, flagyl Blood cultures drawn Cultures from abscess Beta hemolytic strep group C History of diverticulitis patient did not follow up afterwards History of exploratory laparotomy about 20yrs ago leukocyosis due to sepsis monitor Fever resolved Anemia Repeat Hgb in am Full code status History Interval history: s/p IR drainage of abscess abdominal wall yesterday, less abd pain on PCP pump nausea constipation Hospitalist Physical - Physical exam Narrative exam: Gen: Not in acute distress, lying in bed, NG tube in HEENT: Normocephalic, atraumatic Neck: supple, no JVD Heart: S1 and S2 reg, no murmurs, rubs or gallop Lungs: Clear, no crackles Abd: soft, mild tender left lower abd, dressing over abd, non distended, normal BS Ext: No edema, no clubbing, no cyanosis, Neuro: AAO x 3, no focal signs, moves all ext Psych:Normal mood - Constitutional Vitals: Temp Pulse Resp BP Pulse Ox 97.8 F 74 17 160/87 96 07/11/18 07:45 07/11/18 07:45 07/11/18 10:00 07/11/18 07:45 07/11/18 07:45 Results - Labs CBC & Chem 7: 07/11/18 04:21 07/11/18 04:21 Labs: Laboratory Last Values WBC 7.8 K/mm3 (4.5-11.0) 07/11/18 04:21 RBC 3.40 M/mm3 (3.65-5.03) L 07/11/18 04:21 Hgb 7.6 gm/dl (10.1-14.3) L 07/11/18 04:21 Hct 23.9 % (30.3-42.9) L 07/11/18 04:21 MCV 71 fl (79-97) L 07/11/18 04:21 MCH 22 pg (28-32) L 07/11/18 04:21 MCHC 32 % (30-34) 07/11/18 04:21 RDW 16.5 % (13.2-15.2) H 07/11/18 04:21 Plt Count 444 K/mm3 (140-440) H 07/11/18 04:21 Lymph % (Auto) 7.4 % (13.4-35.0) L 07/09/18 05:05 [place] % (Auto) 10.1 % (0.0-7.3) H 07/09/18 05:05 Eos % (Auto) 0.0 % (0.0-4.3) 07/09/18 05:05 Baso % (Auto) 0.4 % (0.0-1.8) 07/09/18 05:05 Lymph # 1.0 K/mm3 (1.2-5.4) L 07/09/18 05:05 [place] # 1.3 K/mm3 (0.0-0.8) H 07/09/18 05:05 Eos # 0.0 K/mm3 (0.0-0.4) 07/09/18 05:05 Baso # 0.0 K/mm3 (0.0-0.1) 07/09/18 05:05 Seg Neutrophils % 82.1 % (40.0-70.0) H 07/09/18 05:05 Seg Neutrophils # 10.8 K/mm3 (1.8-7.7) H 07/09/18 05:05 PT 15.4 Sec. (12.2-14.9) H 07/09/18 05:05 INR 1.15 (0.87-1.13) H 07/09/18 05:05 APTT 41.6 Sec. (24.2-36.6) H 07/09/18 05:05 Sodium 135 mmol/L (137-145) L 07/11/18 04:21 Potassium 3.3 mmol/L (3.6-5.0) L 07/11/18 04:21 Chloride 97.7 mmol/L (98-107) L 07/11/18 04:21 Carbon Dioxide 23 mmol/L (22-30) 07/11/18 04:21 Anion Gap 18 mmol/L 07/11/18 04:21 BUN 4 mg/dL (7-17) L 07/11/18 04:21 Creatinine 0.4 mg/dL (0.7-1.2) L 07/11/18 04:21 Estimated GFR > 60 ml/min 07/11/18 04:21 BUN/Creatinine Ratio 10 % 07/11/18 04:21 Glucose 90 mg/dL (65-100) 07/11/18 04:21 POC Glucose 91 (70-105) 07/10/18 16:31 Lactic Acid 0.60 mmol/L (0.7-2.0) L 07/09/18 17:41 Calcium 8.5 mg/dL (8.4-10.2) 07/11/18 04:21 Phosphorus 2.50 mg/dL (2.5-4.5) 07/08/18 08:00 Magnesium 1.70 mg/dL (1.7-2.3) 07/08/18 08:00 Total Bilirubin 0.70 mg/dL (0.1-1.2) 07/07/18 00:43 AST 38 units/L (5-40) 07/07/18 00:43 ALT 26 units/L (7-56) 07/07/18 00:43 Alkaline Phosphatase 82 units/L (35-129) 07/07/18 00:43 Total Protein 7.4 g/dL (6.3-8.2) 07/07/18 00:43 Albumin 3.9 g/dL (3.9-5) 07/07/18 00:43 Albumin/Globulin Ratio 1.1 % 07/07/18 00:43 Lipase 12 units/L (13-60) L 07/07/18 00:43 HCG, Qual Negative (Negative) 07/07/18 00:43 Urine Color Yellow (Yellow) 07/07/18 Unknown Urine Turbidity Clear (Clear) 07/07/18 Unknown Urine pH 5.0 (5.0-7.0) 07/07/18 Unknown Ur Specific [place] 1.039 (1.003-1.030) H 07/07/18 Unknown Urine Protein 30 mg/dl mg/dL (Negative) 07/07/18 Unknown Urine Glucose (UA) Neg mg/dL (Negative) 07/07/18 Unknown Urine Ketones 80 mg/dL (Negative) 07/07/18 Unknown Urine Blood Sm (Negative) 07/07/18 Unknown Urine Nitrite Neg (Negative) 07/07/18 Unknown Urine Bilirubin Neg (Negative) 07/07/18 Unknown Urine Urobilinogen < 2.0 mg/dL (<2.0) 07/07/18 Unknown Ur Leukocyte Esterase Neg (Negative) 07/07/18 Unknown Urine WBC (Auto) 2.0 /HPF (0.0-6.0) 07/07/18 Unknown Urine RBC (Auto) 21.0 /HPF (0.0-6.0) 07/07/18 Unknown U Epithel Cells (Auto) 1.0 /HPF (0-13.0) 07/07/18 Unknown Urine Mucus 2+ /HPF 07/07/18 Unknown Active Medications - Current Medications Current Medications: Generic Name Dose Route Start Last Admin Trade Name Freq PRN Reason Stop Dose Admin Acetaminophen 650 mg 07/07/18 10:30 07/07/18 13:55 Tylenol PO 650 mg Q4H PRN Administration Pain MILD(1-3)/Fever >100.5/T[place]ANGO Albuterol 2.5 mg 07/07/18 09:26 Proventil IH Q4HRT PRN Shortness Of Breath Famotidine 20 mg 07/07/18 11:00 07/11/18 09:34 Pepcid IV 20 mg BID DUNCAN Administration Hydromorphone/Sodium Chloride 0 mg 07/09/18 09:00 07/10/18 20:35 Dilaudid [employer] 6mg/30ml IV 6 mg DIRECT DUNCAN Administration Protocol Dextrose/Sodium Chloride 1,000 mls @ 100 mls/hr 07/07/18 08:00 07/08/18 10:14 D5ns IV Infused DIRECT DUNCAN Infusion Levofloxacin/Dextrose 500 mg in 100 mls @ 100 mls/hr 07/07/18 17:00 07/11/18 09:34 Levaquin 500mg/100ml IV 100 mls/hr Q24HR DUNCAN Administration Protocol Metronidazole 500 mg in 100 mls @ 100 mls/hr 07/07/18 17:00 07/11/18 05:27 Flagyl 500 Mg/100 Ml IV 100 mls/hr Q8HR DUNCAN Administration Protocol Sodium Chloride 1,000 mls @ 42 mls/hr 07/09/18 09:00 07/11/18 02:29 Nacl 0.9% 1000 Ml IV 42 mls/hr DIRECT DUNCAN Administration Potassium Chloride 10 meq in 100 mls @ 100 mls/hr 07/11/18 10:00 07/11/18 11:09 Kcl 10meq/100ml IV 07/11/18 12:59 100 mls/hr Q1H DUNCAN Administration Ketorolac Tromethamine 30 mg 07/09/18 18:00 07/11/18 05:27 Toradol IV 07/14/18 17:59 30 mg Q6HR DUNCAN Administration Loratadine/Pseudoephedrine Sulfate 1 each 07/10/18 14:00 07/11/18 09:35 Claritin-D 24hr PO Not Given Q24HR DUNCAN Morphine Sulfate 2 mg 07/07/18 10:30 07/09/18 14:45 Morphine IV 2 mg Q4H PRN Administration Pain, Moderate (4-6) Naloxone HCl 0.1 mg 07/09/18 08:56 Narcan 0.4 Mg/1 Ml IV Q2MIN PRN Res Rate </= 8 or 02 SAT < 92% Ondansetron HCl 4 mg 07/07/18 11:30 07/11/18 10:11 Zofran IV 4 mg Q8H PRN Administration Nausea And Vomiting Sodium Chloride 10 ml 07/07/18 11:00 07/11/18 09:35 Sodium Chloride Flush Syringe 10 Ml IV 10 ml BID DUNCAN Administration Sodium Chloride 10 ml 07/07/18 10:30 Sodium Chloride Flush Syringe 10 Ml IV PRN PRN LINE FLUSH
[2018-07-11] MEDS ORDERED: MIRALAX 3350 PO PRN (13:15)
[2018-07-11] MEDS ORDERED: NORCO 5/325 PO PRN (15:15)
--- NOTE | 2018-07-11 15:16 | Progress Note ---
Assessment and Plan (1) Abdominal pain, left lower quadrant Current Visit: Yes Status: Acute Plan to address problem: Pt stable. S/P drainage of abscess of abdominal wall by Dr. Iniguez. Final culture - beta hemolytic group C strept Rec: 1) Abx - transition to PO per 1' service 2) tolerating diet - adv to soft diet for dinner 3) DC [employer]ED [employer] and start PO pain meds 4) PO potassium replacement as patient unable to tolerate IV OK to discharge once patient is transitioned to oral abx, her pain is controlled with PO pain medications. Anticipate dc tomorrow Thank you, please call with questions Subjective Date of service: 07/11/18 Narrative: Pt seen and examined. Feels well. Minimal abdominal pain. No f/c. Passing flatus but no BM today. c.o pain at IV site due to potassium infusion. Objective Vital Signs - 12hr 07/11/18 07/11/18 07/11/18 04:17 07:45 07:53 Temperature 97.7 F 97.8 F Pulse Rate 81 74 Respiratory 17 18 17 Rate Blood Pressure 138/76 160/87 O2 Sat by Pulse 100 96 Oximetry 07/11/18 07/11/18 07/11/18 10:00 10:35 11:46 Temperature 98.3 F Pulse Rate 86 Respiratory 17 18 18 Rate Blood Pressure 165/97 O2 Sat by Pulse 99 Oximetry - General physical appearance Narrative Exam: Gen: AAOx3. NAD CV: s1, S2+ resp; even and unlabored Abd: soft, NT, ND. Dressing c/d/i Ext: no c/c/e - Labs 07/11/18 04:21 07/11/18 04:21 Diabetes panel 07/11/18 Range/Units 04:21 Sodium 135 L (137-145) mmol/L Potassium 3.3 L (3.6-5.0) mmol/L Chloride 97.7 L (98-107) mmol/L Carbon Dioxide 23 (22-30) mmol/L BUN 4 L (7-17) mg/dL Creatinine 0.4 L (0.7-1.2) mg/dL Glucose 90 (65-100) mg/dL Calcium 8.5 (8.4-10.2) mg/dL Calcium panel 07/11/18 Range/Units 04:21 Calcium 8.5 (8.4-10.2) mg/dL Pituitary panel 07/11/18 Range/Units 04:21 Sodium 135 L (137-145) mmol/L Potassium 3.3 L (3.6-5.0) mmol/L Chloride 97.7 L (98-107) mmol/L Carbon Dioxide 23 (22-30) mmol/L BUN 4 L (7-17) mg/dL Creatinine 0.4 L (0.7-1.2) mg/dL Glucose 90 (65-100) mg/dL Calcium 8.5 (8.4-10.2) mg/dL Adrenal panel 07/11/18 Range/Units 04:21 Sodium 135 L (137-145) mmol/L Potassium 3.3 L (3.6-5.0) mmol/L Chloride 97.7 L (98-107) mmol/L Carbon Dioxide 23 (22-30) mmol/L BUN 4 L (7-17) mg/dL Creatinine 0.4 L (0.7-1.2) mg/dL Glucose 90 (65-100) mg/dL Calcium 8.5 (8.4-10.2) mg/dL
[2018-07-11] MEDS ORDERED: K-DUR PO ONE (16:11)
[2018-07-12] MEDS: TORADOL IV SCH ×3 (01:01→12:13)
[2018-07-12 04:38] VITALS: BP 134/71
[2018-07-12 05:01] LABS: Hematocrit 25.5 % (30.3-42.9); Hemoglobin 8.1 gm/dl (10.1-14.3); Mean Corpuscular HGB Conc 32 % (30-34); Mean Corpuscular Volume 70 fl (79-97); Platelet Count 573 K/mm3 (140-440); Red Blood Count 3.65 M/mm3 (3.65-5.03); Red Cell Distribution Width 16.3 % (13.2-15.2)
[2018-07-12 05:11] LABS: BUN/Creatinine Ratio 6; Blood Urea Nitrogen 3 mg/dL (7-17); Calcium 8.7 mg/dL (8.4-10.2); Hemolysis Index 0
[2018-07-12] MEDS: FLAGYL 500 MG/100 ML 500 MG/100 ML BAG IV SCH (05:44)
[2018-07-12] MEDS: LEVAQUIN 500MG/100ML 500 MG/100 ML BAG IV SCH (09:20)
[2018-07-12] MEDS: PEPCID IV SCH (09:20)
[2018-07-12] MEDS: SODIUM CHLORIDE FLUSH SYRINGE 10 ML IV SCH (09:21)
[2018-07-12] MEDS: CLARITIN-D 24HR PO SCH (10:05)
[2018-07-12] MEDS: ZOFRAN IV PRN (12:14)
[2018-07-12] MEDS ORDERED: FLAGYL PO SCH (14:00)
--- NOTE | 2018-07-12 14:18 | Vascular Lab Report ---
PROCEDURE: VL VENOUS DUPLEX LE BILAT TECHNIQUE: Duplex Doppler sonography of the BILATERAL lower extremity veins. Bernardo scale imaging with and without compression, spectral waveform analysis with and without augmentation, and color flow Do ppler were employed. HISTORY: leg swelling, immobility COMPARISONS: None FINDINGS: Normal compressibility and blood flow. No filling defects. Normal augmentation. IMPRESSION: No evidence of deep venous thrombosis This document is electronically signed by Radha Bucio MD., July 12 2018 02:16:30 PM ET
--- NOTE | 2018-07-12 14:32 | Discharge Summary ---
Providers - Providers Date of Admission: 07/07/18 05:25 Date of discharge: 07/12/18 Attending physician: YULIANA FLORES 07/07/18 05:35 Consult to Physician [CONS] Stat Comment: Dr. Hernández spoke with Dr. Cagle @ [id number] Consulting Provider: LALI CAGLE Physician Instructions: Reason For Exam: small bowel obstruction 07/08/18 20:14 Consult to Interventional Radiology [CONS] Routine Consulting Provider: MAN CARR Reason For Exam: Drainage of LLQ abdominal wall abscess Place consult to:: DR. STANFORD Notified:: ANSWERING SERVICE Phone number called:: [phone] Was contact made?: Yes If yes, spoke with:: BHARATHI Time called:: 08:09 Comment:: CONSULT COMPLETED - TONE [facility] Condition: Good Hospital course: Patient is 47 yo with history of diverticulitis, hypertension. She presented with abdominal pain for 1 day. Abdominal pain located in left lower quadrant, 10 out of 10 in intensity, sharp pain. pain not related to food. Of note she had history of diverticulitis few years ago. CT Abdomen in ED, revealed multiple distended bowel loops possible partial small bowel obstruction. She was admitted, evaluated by Surgeon. CT Abdomen with contrast revealed abscess rectus muscle abd wall. CT- guided drainage was done by IR. Cultures grew Beta hemolytic strep and she was discharged home on Levaquin and Flagyl. Total time spent on discharge, 32 mins Disposition: DC-01 TO HOME OR SELFCARE - Discharge Diagnoses (1) Abscess of abdominal wall Status: Acute Core Measure Documentation - Palliative Care Palliative Care/ Comfort Measures: Not Applicable - Core Measures Any of the following diagnoses?: none Exam - Constitutional Vitals: Temp Pulse Resp BP Pulse Ox 98.0 F 75 17 134/71 99 07/12/18 04:20 07/12/18 04:20 07/12/18 04:20 07/12/18 04:20 07/12/18 04:20 Plan Activity: no restrictions Additional Instructions: 1.Follow up with PCP or [facility] in 1 week. 2.Follow up with Dr. Cagle, Surgeon in 1 week Follow up with: VINCENZO VILLAGRAN MD [Primary Care Provider] - 3-5 Days Prescriptions: metroNIDAZOLE [Flagyl TAB] 500 mg PO Q8HR #15 tablet levoFLOXacin [Levaquin TAB] 500 mg PO Q24HR #5 tablet HYDROcodone/APAP 5-325 [[place] 5-325 mg TAB] 1 each PO Q6H PRN #12 tablet PRN Reason: Pain, Moderate (4-6)
--- NOTE | 2018-07-12 14:44 | Progress Note ---
Assessment and Plan (1) Abdominal pain, left lower quadrant Current Visit: Yes Status: Acute Plan to address problem: Pt stable. S/P drainage of abscess of abdominal wall by Dr. Iniguez. Final culture - beta hemolytic group C strept Rec: 1) Abx - transition to PO per 1' service 2) reg diet 3) PO pain control Stable for dc from surgery standpoint. D/W Dr. Knight Thank you, please call with questions Subjective Date of service: 07/12/18 Narrative: Pt seen and examined. No complaints. Tolerating soft diet. Had several loose BMs today. No pain Objective Vital Signs - 12hr 07/12/18 04:20 Temperature 98.0 F Pulse Rate 75 Respiratory 17 Rate Blood Pressure 134/71 O2 Sat by Pulse 99 Oximetry - General physical appearance Narrative Exam: Gen: AAOx3. NAD CV: S1, s2+ resp; even and unlabored Abd: soft, NT, ND. Dressing removed. No redness, swelling, or pain Ext: no c/c/e - Labs 07/12/18 04:15 07/12/18 04:15 Diabetes panel 07/12/18 Range/Units 04:15 Sodium 138 (137-145) mmol/L Potassium 3.3 L (3.6-5.0) mmol/L Chloride 98.6 (98-107) mmol/L Carbon Dioxide 26 (22-30) mmol/L BUN 3 L (7-17) mg/dL Creatinine 0.5 L (0.7-1.2) mg/dL Glucose 91 (65-100) mg/dL Calcium 8.7 (8.4-10.2) mg/dL Calcium panel 07/12/18 Range/Units 04:15 Calcium 8.7 (8.4-10.2) mg/dL Pituitary panel 07/12/18 Range/Units 04:15 Sodium 138 (137-145) mmol/L Potassium 3.3 L (3.6-5.0) mmol/L Chloride 98.6 (98-107) mmol/L Carbon Dioxide 26 (22-30) mmol/L BUN 3 L (7-17) mg/dL Creatinine 0.5 L (0.7-1.2) mg/dL Glucose 91 (65-100) mg/dL Calcium 8.7 (8.4-10.2) mg/dL Adrenal panel 07/12/18 Range/Units 04:15 Sodium 138 (137-145) mmol/L Potassium 3.3 L (3.6-5.0) mmol/L Chloride 98.6 (98-107) mmol/L Carbon Dioxide 26 (22-30) mmol/L BUN 3 L (7-17) mg/dL Creatinine 0.5 L (0.7-1.2) mg/dL Glucose 91 (65-100) mg/dL Calcium 8.7 (8.4-10.2) mg/dL
[2018-07-13] MEDS ORDERED: LEVAQUIN PO SCH (10:00)
== END 2018-07-12 16:20 | disposition home or self-care (01) | DRG 872 ==
LOC: ED 00:10 → 3B-SURG 05:25
PROVIDERS: ADMIT Internal Medicine; ATTEND Internal Medicine
PROC: 0J983ZZ Drainage of Abdomen Subcutaneous Tissue and Fascia, Percutaneous Approach (ICD-10-PCS; principal; 2018-07-09)
DX: A41.9 Sepsis, unspecified organism (principal); K56.600 Partial intestinal obstruction, unspecified as to cause; L02.211 Cutaneous abscess of abdominal wall; I10 Essential (primary) hypertension; D72.829 Elevated white blood cell count, unspecified; D64.9 Anemia, unspecified; E87.6 Hypokalemia; Z88.1 Allergy status to other antibiotic agents; Z88.6 Allergy status to analgesic agent; Z79.899 Other long term (current) drug therapy
CPT/HCPCS: 10160; 36415; 71045; 74176; 74177; 77012; 80048; 80053; 81001; 82140; 82962; 83690; 83735; 84100; 84703; 85025; 85027; 85610; 85730; 87040; 87116; 93970; 94760; G0378; J1170; J1450; J1885; J1956; J2060; J2250; J2270; J2405; J3010; J3480; J7030; J7040; J7042; Q9967

== ENCOUNTER 2018-09-03 12:39 | Inpatient (IN) | payer MEDICAID, OTHER ==
--- NOTE | 2018-09-03 13:01 | Emergency Department Report ---
Blank Doc - Documentation Documentation: This is a 48-year-old female that presents with left abdominal pain. Denies any n/v. This initial assessment/diagnostic orders/clinical plan/treatment(s) is/are subject to change based on patient's health status, clinical progression and re- assessment by fellow clinical providers in the ED. Further treatment and workup at subsequent clinical providers discretion. Patient/guardians urged not to elope from the ED as their condition may be serious if not clinically assessed and managed. Initial orders include: 1- Patient sent to [facility] for further evaluation and treatment 2- labs 3- UA
[2018-09-03 14:09] LABS: Basophils % (Auto) 0.4 % (0.0-1.8); Eosinophils # (Auto) 0.1 K/mm3 (0.0-0.4); Eosinophils % (Auto) 0.5 % (0.0-4.3); Hematocrit 29.9 % (30.3-42.9); Hemoglobin 9.4 gm/dl (10.1-14.3); Lymphocytes # (Auto) 1.3 K/mm3 (1.2-5.4); Lymphocytes % (Auto) 11.4 % (13.4-35.0); Mean Corpuscular HGB Conc 32 % (30-34); Mean Corpuscular Volume 73 fl (79-97); Monocytes # (Auto) 0.9 K/mm3 (0.0-0.8); Monocytes % (Auto) 8.4 % (0.0-7.3); Platelet Count 342 K/mm3 (140-440); Red Blood Count 4.11 M/mm3 (3.65-5.03); Red Cell Distribution Width 17.2 % (13.2-15.2)
[2018-09-03 14:15] LABS: Alanine Aminotransferase 8 units/L (7-56); BUN/Creatinine Ratio 17; Blood Urea Nitrogen 10 mg/dL (7-17); Calcium 9.2 mg/dL (8.4-10.2); Hemolysis Index 10
[2018-09-03 14:19] LABS: Bacteria,Urine 1+ /HPF (Negative); Bilirubin,Urine NEG (Negative); Blood,Urine NEG (Negative); Color,Urine Amber (Yellow); Mucus,Urine 3+ /HPF
[2018-09-03] MEDS ORDERED: NACL 0.9% 1000 ML 1,000 ML IV ONE (14:56)
[2018-09-03] MEDS ORDERED: ZOFRAN IV ONE (14:56)
[2018-09-03] MEDS ORDERED: MORPHINE IV ONE (14:56)
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
[2018-09-03] MEDS ORDERED: FLAGYL 500 MG/100 ML 500 MG/100 ML BAG IV ONE (17:13)
--- NOTE | 2018-09-03 17:28 | Cat Scan Report ---
PROCEDURE: CT ABDOMEN PELVIS W CON TECHNIQUE: Computerized axial tomography of the abdomen and pelvis was performed after the administr ation of IV iodinated nonionic contrast. CT DOSE LENGTH PRODUCT: 676.7 mGycm HISTORY: LLQ pain patient had a drainage procedure of a fluid collection in the left lower quadrant i n June. The articular the fluid was unclear. COMPARISONS: CT abdomen and pelvis dated July 07, 2018.. FINDINGS: The lung bases are without infiltrate, pneumothorax or pleural fluid collection. The liver, spleen, pancreas and adrenal glands are unremarkable. Again noted is the small probable angiomyolipoma right kidney. The kidneys are otherwise unremarkable . The gallbladder is mildly distended and contains calcified gallstones. There is a small bowel anastomosis in the left abdomen with mild distention of the small bowel proxim al to the anastomosis. The bowel is otherwise normal caliber. There is colonic diverticulosis. There is marked increased thickness of the wall of the sigmoid colon. This segment of colon is contig uous with a complex heterogeneously enhancing mass in the left anterior pelvis that contains areas of decreased density with marginal enhancement and solid enhancing tissue. There is heterogeneous mass measures approximately 3.5 cm x 2.8 cm x 3 cm in size. This is contiguous with but not clearly separa ble from the left rectus sheath. This collection is also not clearly separable from the left ovary. T here is a long tubular structure in the left adnexa that may represent an enlarged fallopian tube. The heterogeneously enhancing mass was also demonstrated on the previous study. Direct comparison is somewhat limited due to the lack of IV contrast on the previous study. However, this appears to be sl ightly larger on the present study. The uterus is enlarged and heterogeneous in appearance and contains what appears to be intrauterine d evice is in the region of the fallopian tubes bilaterally. The cervix is heterogeneous in appearance. There is no evidence of pneumoperitoneum. The abdominal aorta is normal caliber. There are mildly prominent lymph nodes in the left iliac chain and and periaortic region. The largest lymph node is in the left iliac chain/pelvic sidewall and measures approximately 12 mm in the richard l axial dimension. The urinary bladder is moderately distended and unremarkable. The bony structures are unremarkable. IMPRESSION: 1. Approximately 3.5 cm x 2.8 cm x 3 cm complex mass with cystic and solid components with marginal e nhancement of the cystic components. This is contiguous with a segment of sigmoid colon with increase d thickness of the sigmoid colon wall in this region. This is also contiguous with the left ovary wit h possible left hydrosalpinx. This mass is contiguous with and not clearly separable from the left rectus sheath. The this may represent an inflammatory mass arising from the sigmoid colon (diverticular abscess) or left ovary (tubo-ovarian abscess) a malignancy cannot entirely be excluded. The above finding was discussed with BEKAH Woodard at 5:05 PM September 03, 2018. Correlation with surgical pathology in this patient with previous surgical intervention in this regio n is recommended. 2. Mildly prominent left pelvic/iliac chain and periaortic lymph nodes. These are nonspecific in appe arance with maximal axial dimension of 12 mm. 2. Colonic diverticulosis. 3. Small bowel anastomosis left abdomen. 4. Gallstones within the gallbladder. 5. Right renal angiomyolipoma. This document is electronically signed by Amanda Sharpe MD., September 03 2018 05:25:54 PM ET
[2018-09-03] MEDS ORDERED: SODIUM CHLORIDE FLUSH SYRINGE 10 ML IV PRN (21:18)
[2018-09-03] MEDS ORDERED: REGLAN IV PRN (21:18)
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
[2018-09-03] MEDS: DILAUDID IV PRN (21:44)
[2018-09-03] MEDS ORDERED: ZOSYN/NS 4.5GM/100ML 4.5 GM/100 ML VIAL IV SCH (22:00)
[2018-09-03] MEDS: SODIUM CHLORIDE FLUSH SYRINGE 10 ML IV SCH (22:22)
[2018-09-03] MEDS: MAXIPIME/NS 2 GM/100 ML 2 GM/100 ML BAG IV SCH (22:22)
[2018-09-03] MEDS: ZOFRAN IV PRN (23:06)
[2018-09-03] MEDS: D5NS 1,000 ML IV SCH (23:07)
[2018-09-04] MEDS: DILAUDID IV PRN ×5 (00:40→21:01)
[2018-09-04] MEDS: ZOFRAN IV PRN ×3 (03:10→16:19)
[2018-09-04] MEDS: MAXIPIME/NS 2 GM/100 ML 2 GM/100 ML BAG IV SCH ×3 (05:36→21:03)
[2018-09-04] MEDS ORDERED: VICKS SINEX NS PRN (06:44)
[2018-09-04 07:54] LABS: Basophils # (Auto) 0.1 K/mm3 (0.0-0.1); Basophils % (Auto) 0.7 % (0.0-1.8); Eosinophils % (Auto) 0.2 % (0.0-4.3); Hematocrit 26.1 % (30.3-42.9); Hemoglobin 8.5 gm/dl (10.1-14.3); Lymphocytes # (Auto) 0.9 K/mm3 (1.2-5.4); Mean Corpuscular HGB Conc 33 % (30-34); Mean Corpuscular Volume 72 fl (79-97); Monocytes # (Auto) 0.8 K/mm3 (0.0-0.8); Monocytes % (Auto) 8.4 % (0.0-7.3); Platelet Count 291 K/mm3 (140-440); Red Blood Count 3.65 M/mm3 (3.65-5.03); Red Cell Distribution Width 16.8 % (13.2-15.2)
[2018-09-04 08:18] LABS: Alanine Aminotransferase 7 units/L (7-56); Albumin 3.3 g/dL (3.9-5); BUN/Creatinine Ratio 14; Blood Urea Nitrogen 7 mg/dL (7-17); Calcium 8.2 mg/dL (8.4-10.2); Hemolysis Index 15
[2018-09-04] MEDS: TYLENOL PO PRN (08:56)
[2018-09-04] MEDS: D5NS 1,000 ML IV SCH (09:04)
[2018-09-04] MEDS: SODIUM CHLORIDE FLUSH SYRINGE 10 ML IV SCH ×2 (09:05→21:11)
[2018-09-04 09:25] LABS: % Iron Saturation 7.26 %
--- NOTE | 2018-09-04 10:04 | Progress Note ---
Assessment and Plan Assessment and plan: -- Left lower quadrant abdominal abscess Current Visit: Yes Status: Acute Plan to address problem: IV abx initiated Follow Surgery, GI ,ID evaluation and recommendations Continue nothing by mouth status Supportive care --Hypokalemia; 20 mEq IV 1 dose, monitor electrolytes --HTN (hypertension) Current Visit: Yes Status: Chronic Catapress patch initiated when necessary hydralazine --Iron deficiency Anemia Current Visit: Yes Status: Chronic Qualifiers: Anemia type: unspecified type Qualified Code(s): D64.9 - Anemia, unspecified Plan to address problem: Anemia w/u, follow H&H transfuse as needed --Moderate Malnutrition/hypoalbuminemia supportive care, nutrition supplements and patient is able to take oral -- DVT prophylaxis Current Visit: Yes Status: Acute Plan to address problem: SCD History Interval history: Patient seen and examined medical records reviewed Patient feels slightly better. Abdominal pain Alert and oriented 3 vital signs noted Hospitalist Physical - Constitutional Vitals: Temp Pulse Resp BP Pulse Ox 97.0 F L 97 H 16 114/65 99 09/04/18 06:06 09/04/18 06:06 09/04/18 06:06 09/04/18 06:06 09/04/18 06:06 General appearance: Present: no acute distress, well-nourished - EENT Eyes: Present: PERRL, EOM intact - Neck Neck: Present: supple, normal ROM - Respiratory Respiratory effort: normal Respiratory: bilateral: diminished, negative: rales, rhonchi, wheezing - Cardiovascular Rhythm: regular Heart Sounds: Present: S1 & S2 - Extremities Extremities: no ischemia, No edema - Abdominal General gastrointestinal: soft, tender (no guarding or rigidity), hypoactive bowel sounds - Integumentary Integumentary: Present: clear, warm - Psychiatric Psychiatric: appropriate mood/affect, cooperative - Neurologic Neurologic: moves all extremities Results - Labs CBC & Chem 7: 09/04/18 07:02 09/04/18 07:02 Labs: Laboratory Last Values WBC 9.8 K/mm3 (4.5-11.0) 09/04/18 07:02 RBC 3.65 M/mm3 (3.65-5.03) 09/04/18 07:02 Hgb 8.5 gm/dl (10.1-14.3) L 09/04/18 07:02 Hct 26.1 % (30.3-42.9) L 09/04/18 07:02 MCV 72 fl (79-97) L 09/04/18 07:02 MCH 23 pg (28-32) L 09/04/18 07:02 MCHC 33 % (30-34) 09/04/18 07:02 RDW 16.8 % (13.2-15.2) H 09/04/18 07:02 Plt Count 291 K/mm3 (140-440) 09/04/18 07:02 Lymph % (Auto) 9.0 % (13.4-35.0) L 09/04/18 07:02 [place] % (Auto) 8.4 % (0.0-7.3) H 09/04/18 07:02 Eos % (Auto) 0.2 % (0.0-4.3) 09/04/18 07:02 Baso % (Auto) 0.7 % (0.0-1.8) 09/04/18 07:02 Lymph # 0.9 K/mm3 (1.2-5.4) L 09/04/18 07:02 Morris # 0.8 K/mm3 (0.0-0.8) 09/04/18 07:02 Eos # 0.0 K/mm3 (0.0-0.4) 09/04/18 07:02 Baso # 0.1 K/mm3 (0.0-0.1) 09/04/18 07:02 Seg Neutrophils % 81.7 % (40.0-70.0) H 09/04/18 07:02 Seg Neutrophils # 8.0 K/mm3 (1.8-7.7) H 09/04/18 07:02 Sodium 134 mmol/L (137-145) L 09/04/18 07:02 Potassium 3.5 mmol/L (3.6-5.0) L 09/04/18 07:02 Chloride 98.3 mmol/L (98-107) 09/04/18 07:02 Carbon Dioxide 23 mmol/L (22-30) 09/04/18 07:02 16 mmol/L 09/04/18 07:02 BUN 7 mg/dL (7-17) 09/04/18 07:02 0.5 mg/dL (0.7-1.2) L 09/04/18 07:02 Estimated GFR > 60 ml/min 09/04/18 07:02 14 % 09/04/18 07:02 Glucose 118 mg/dL (65-100) H 09/04/18 07:02 5.0 % (4-6) 09/03/18 13:20 Calcium 8.2 mg/dL (8.4-10.2) L 09/04/18 07:02 Iron 17 ug/dL (37-170) L 09/04/18 07:02 TIBC 234 mcg/dL (250-450) L 09/04/18 07:02 % Saturation 7.26 % 09/04/18 07:02 190 mg/dl (192-382) L 09/04/18 07:02 0.50 mg/dL (0.1-1.2) 09/04/18 07:02 AST 12 units/L (5-40) 09/04/18 07:02 ALT 7 units/L (7-56) 09/04/18 07:02 72 units/L (35-129) 09/04/18 07:02 6.9 g/dL (6.3-8.2) 09/04/18 07:02 3.3 g/dL (3.9-5) L 09/04/18 07:02 0.9 % 09/04/18 07:02 15 units/L (13-60) 09/03/18 13:20 HCG, Qual Negative (Negative) 09/03/18 13:20 Mary Jo (Yellow) 09/03/18 Unknown Hazy (Clear) 09/03/18 Unknown 5.0 (5.0-7.0) 09/03/18 Unknown Ur Specific [place] 1.032 (1.003-1.030) H 09/03/18 Unknown 30 mg/dl mg/dL (Negative) 09/03/18 Unknown Neg mg/dL (Negative) 09/03/18 Unknown Neg mg/dL (Negative) 09/03/18 Unknown Neg (Negative) 09/03/18 Unknown Neg (Negative) 09/03/18 Unknown Neg (Negative) 09/03/18 Unknown 2.0 mg/dL (<2.0) 09/03/18 Unknown Ur Leukocyte Esterase Neg (Negative) 09/03/18 Unknown 6.0 /HPF (0.0-6.0) 09/03/18 Unknown 7.0 /HPF (0.0-6.0) 09/03/18 Unknown U Epithel Cells (Auto) 10.0 /HPF (0-13.0) 09/03/18 Unknown 1+ /HPF (Negative) 09/03/18 Unknown 3+ /HPF 09/03/18 Unknown Active Medications - Current Medications Current Medications: Generic Name Dose Route Start Last Admin Trade Name Freq PRN Reason Stop Dose Admin Acetaminophen 650 mg 09/03/18 21:18 Tylenol PO Q4H PRN Pain MILD(1-3)/Fever >100.5/TARANGO Hydromorphone HCl 0.5 mg 09/03/18 21:18 09/04/18 09:29 Dilaudid IV 0.5 mg Q3H PRN Administration Pain , Severe (7-10) Dextrose/Sodium Chloride 1,000 mls @ 75 mls/hr 09/03/18 22:00 09/04/18 09:04 D5ns IV 75 mls/hr DIRECT DUNCAN Administration Cefepime HCl 2 gm in 100 mls @ 100 mls/hr 09/03/18 22:00 09/04/18 05:36 Maxipime/Ns 2 Gm/100 Ml IV 100 mls/hr Q8HR DUNCAN Administration Metoclopramide HCl 10 mg 09/03/18 21:18 Reglan IV Q6H PRN Nausea And Vomiting Ondansetron HCl 4 mg 09/03/18 21:18 09/04/18 09:02 Zofran IV 4 mg Q3H PRN Administration Nausea And Vomiting Oxymetazoline HCl 2 spray 09/04/18 06:44 09/04/18 08:56 Afrin NS 09/06/18 06:43 2 spray Q12H PRN Administration Nasal Congestion Sodium Chloride 10 ml 09/03/18 22:00 09/04/18 09:05 Sodium Chloride Flush Syringe 10 Ml IV 10 ml BID DUNCAN Administration Sodium Chloride 10 ml 09/03/18 21:18 Sodium Chloride Flush Syringe 10 Ml IV PRN PRN LINE FLUSH
--- NOTE | 2018-09-04 10:38 | Consultation ---
History of Present Illness - Reason for Consult Consult date: 09/04/18 Abdominal fluid collection Requesting physician: GISELLE FOSS - History of Present Illness This patient is a 48-year-old female with a past medical history of divertic ulitis and hyperension, that presented in the ED on 09/03/18 with complaints of left lower quadrant pain for the past 3 days. She reports a history of fluid collection in the left lower quadrant that was drained 1-2 months ago. Review of medical records shows that on 07/07/18, patient presented in the ED with abdominal pain and stated that she was diagnosed with diverticulitis by CT a year ago. At that visit, she was diagnosed with abscess abdominal wall rectus muscle. She underwent a CT guided aspiration of LLQ fluid collection and 2-3 ml of purulent material and old blood was aspirated. Abdominal surgical cultures grew Beta Hemolytic strep group C. She was discharged home on Levaquin and Flagyl. She was scheduled to undergo colonoscopy in [address] Amin, [facility]. She reports associated fever and chronic constipation. On admission WBC 11.0, Creatinine 0.5, Temperature 98.2, HR 94 . BP 148/92. U/A w/o Pyuria, LE negative. . Abdomen and Pelvis CT show 3.5cm x 2.8 cm complex mas with cystic and solid components. Colonic diverticulosis. Small bowel anasto mosis left abdomen. Gallstones. Right renal angiomyolipoma. Blood cultures are in progress. Review of Systems: General: subjective fever, no chills, nightsweats, unintentional weight change, or change in appetite Cutaneous: no rash, pruritus Head: no headaches or injury Eyes: no changes in vision, + allergy symptoms Ears: no ear pain, ear discharge, ringing or hearing loss Nose: no nose bleeding, + nose stuffiness Mouth & throat: no bleeding gums, no horseness, no dental problems, or swollen glands Neck: no pain, node enlargement/lumps, tyroid enlargement or tenderness Respiratory: no cough, wheezing, sputum, hemoptysis, pleuritic chest pain Cardiovascular: no chest pain, leg edema, cyanosis, [place], orthopnea Musculoskeletal: no decreased joint motion, bone or joint pain, joint swelling, muscle aches Gastrointestinal: LL quadrant pain, now resolved. + chronic constipation Genitourinary/Reproductive: no frequent urination, no dysuria, hematuria, incontinence Neurogical: no seizures, no headaches, no weakness, no paresthesias, no loss of speech or vision; no memory loss, no vertigo, no tremors, no numbness Psychiatric: stable mood; no excessive anxiety, sadness or moodiness Medications and Allergies Allergies Allergy/AdvReac Type Severity Reaction Status Date / Time amoxicillin Allergy Swelling Verified 07/27/15 12:17 aspirin Allergy Nausea Verified 07/27/15 12:17 Home Medications Medication Instructions Recorded Confirmed Last Taken Type No Known Home Medications [No 09/03/18 09/03/18 Unknown History Reported Home Medications] Active Meds: Active Medications Acetaminophen (Tylenol) 650 mg PO Q4H PRN PRN Reason: Pain MILD(1-3)/Fever >100.5/TARANGO Hydromorphone HCl (Dilaudid) 0.5 mg IV Q3H PRN PRN Reason: Pain , Severe (7-10) Last Admin: 09/04/18 09:29 Dose: 0.5 mg Documented by: Dextrose/Sodium Chloride (D5ns) 1,000 mls @ 75 mls/hr IV DIRECT [facility] Last Admin: 09/04/18 09:04 Dose: 75 mls/hr Documented by: Cefepime HCl (Maxipime/Ns 2 Gm/100 Ml) 2 gm in 100 mls @ 100 mls/hr IV Q8HR [facility] Last Admin: 09/04/18 05:36 Dose: 100 mls/hr Documented by: Metoclopramide HCl (Reglan) 10 mg IV Q6H PRN PRN Reason: Nausea And Vomiting Ondansetron HCl (Zofran) 4 mg IV Q3H PRN PRN Reason: Nausea And Vomiting Last Admin: 09/04/18 09:02 Dose: 4 mg Documented by: Oxymetazoline HCl (Afrin) 2 spray NS Q12H PRN PRN Reason: Nasal Congestion Stop: 09/06/18 06:43 Last Admin: 09/04/18 08:56 Dose: 2 spray Documented by: Sodium Chloride (Sodium Chloride Flush Syringe 10 Ml) 10 ml IV BID [facility] Last Admin: 09/04/18 09:05 Dose: 10 ml Documented by: Sodium Chloride (Sodium Chloride Flush Syringe 10 Ml) 10 ml IV PRN PRN PRN Reason: LINE FLUSH Physical Examination - Physical Exam Narrative exam: Constitutional: Alert, cooperative. No acute distress Head, Ears, Nose: Normocephalic, atraumatic. External ears, nose normal Eyes: Conjunctivae/corneas clear. No icterus. No ptosis. Neck: Supple, no meningeal signs Oral: dentition good, no thrush Cardiovascular: S1, S2 normal. Respiratory: Good air entry, clear to auscultation bilaterally GI: Soft, non-tender; +chronic constipation. no LL quadrant pain reported Musculoskeletal: No pedal edema, no cyanosis. Skin: No rash or abscess. Hem/Lymphatic: No palpable cervical or supraclavicular nodes. No lymphangitis Psych: Mood ok. Affect normal Neurological: Awake, alert, oriented. - Constitutional Vitals: Vital Signs Temp Pulse Resp BP Pulse Ox 97.0 F L 97 H 16 114/65 99 09/04/18 06:06 09/04/18 06:06 09/04/18 06:06 09/04/18 06:06 09/04/18 06:06 Temperature -Last 24 Hours Temperature 97.0 F Temperature 99.0 F Temperature 98.3 F Temperature 98.5 F Temperature 99.3 F Temperature 98.2 F Results - Labs CBC & Chem 7: 09/04/18 07:02 09/04/18 07:02 Labs: Abnormal lab results 09/03/18 09/03/18 09/03/18 Range/Units 13:20 13:20 Unknown Hgb 9.4 L (10.1-14.3) gm/dl Hct 29.9 L (30.3-42.9) % MCV 73 L (79-97) fl MCH 23 L (28-32) pg RDW 17.2 H (13.2-15.2) % Lymph % (Auto) 11.4 L (13.4-35.0) % [place] % (Auto) 8.4 H (0.0-7.3) % Lymph # (1.2-5.4) K/mm3 [place] # 0.9 H (0.0-0.8) K/mm3 Seg Neutrophils % 79.3 H (40.0-70.0) % Seg Neutrophils # 8.8 H (1.8-7.7) K/mm3 Sodium (137-145) mmol/L Potassium (3.6-5.0) mmol/L Creatinine 0.6 L (0.7-1.2) mg/dL Glucose 101 H (65-100) mg/dL Calcium (8.4-10.2) mg/dL Iron (37-170) ug/dL TIBC (250-450) mcg/dL Transferrin (192-382) mg/dl Albumin (3.9-5) g/dL Ur Specific [place] 1.032 H (1.003-1.030) 09/04/18 09/04/18 09/04/18 Range/Units 07:02 07:02 07:02 Hgb 8.5 L (10.1-14.3) gm/dl Hct 26.1 L (30.3-42.9) % MCV 72 L (79-97) fl MCH 23 L (28-32) pg RDW 16.8 H (13.2-15.2) % Lymph % (Auto) 9.0 L (13.4-35.0) % [place] % (Auto) 8.4 H (0.0-7.3) % Lymph # 0.9 L (1.2-5.4) K/mm3 [place] # (0.0-0.8) K/mm3 Seg Neutrophils % 81.7 H (40.0-70.0) % Seg Neutrophils # 8.0 H (1.8-7.7) K/mm3 Sodium 134 L (137-145) mmol/L Potassium 3.5 L (3.6-5.0) mmol/L Creatinine 0.5 L (0.7-1.2) mg/dL Glucose 118 H (65-100) mg/dL Calcium 8.2 L (8.4-10.2) mg/dL Iron 17 L (37-170) ug/dL TIBC 234 L (250-450) mcg/dL Transferrin 190 L (192-382) mg/dl Albumin 3.3 L (3.9-5) g/dL Ur Specific [place] (1.003-1.030) - Imaging and Cardiology CT scan - abdomen: report reviewed (3.5cm x 2.8 cm complex mas with cystic and solid components. Colonic diverticulosis. Small bowel anastomosis left abdomen. Gallstones. Right renal angiomyolipoma.) Assessment and Plan Previous Cultures: 07/09/18 Abdomen/Surgical: Beta Hemolytic Strep Group C 07/07/18 Blood: no growth Current Cultures: 09/03/18 Blood: In progress A/P: 48-year-old female with a past medical history of diverticulitis and hyperension , that presented in the ED on 09/03/18 with complaints of left lower quadrant pain for the past 3 days. She reports a history of fluid collection in the left lower quadrant that was drained 1-2 months ago. Review of medical records shows that on 07/07/18, patient presented in the ED with abdominal pain and stated that she was diagnosed with diverticulitis by CT a year ago. At that visit, she was diagnosed with abscess abdominal wall rectus muscle. She underwent a CT guided aspiration of LLQ fluid collection and 2-3 ml of purulent material and old blood was aspirated. Abdominal surgical cultures grew Beta Hemolytic strep group C. She was discharged home on Levaquin and Flagyl. She was scheduled to undergo colonoscopy in days with Dr. Amin, [facility]. She reported associated fever and chronic constipation. Now admitted with: 1. Left Lower Abdominal Abscess: Likely diverticulitis abscess. CT Pelvis shows 3.5cm x 2.8 cm complex mass with cystic and solid components. Colonic diverticulosis. Prior history of abdominal abscess. S/p drainage 07/09/18. Surgical cultures grew Beta Hemolytic Strep group C. Now being treated with Cefepime. Surgery recommends c-scope prior to consideration of exploration - following Plan: -follow-up blood cultures -appreciate surgical consult - consider IR evaluation for drainage -Start flucanazole 200 mg IV -Start Flagyl 500 mg -Continue Cefepime 2gms IV every 8 hours, D2 Dr. Kincaid will be senior quality control technician this weekend, . Please call for questions. [facility] M: [phone] O:[phone]
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
[2018-09-04] MEDS: FLAGYL 500 MG/100 ML 500 MG/100 ML BAG IV SCH ×2 (16:11→21:54)
[2018-09-04] MEDS: DIFLUCAN 200 MG/100 ML BAG IV SCH (17:06)
[2018-09-04] MEDS: KCL 10MEQ/100ML 10 MEQ/100 ML BAG IV SCH (21:56)
[2018-09-04] MEDS ORDERED: K-DUR PO ONE (22:46)
[2018-09-05] MEDS: ZOFRAN IV PRN ×4 (02:14→15:33)
[2018-09-05] MEDS: DILAUDID IV PRN ×5 (02:15→20:34)
[2018-09-05] MEDS: MAXIPIME/NS 2 GM/100 ML 2 GM/100 ML BAG IV SCH ×3 (05:13→21:24)
[2018-09-05] MEDS: D5NS 1,000 ML IV SCH ×2 (05:15→20:40)
[2018-09-05] MEDS: FLAGYL 500 MG/100 ML 500 MG/100 ML BAG IV SCH ×3 (06:24→21:36)
[2018-09-05 07:51] LABS: Basophils % (Auto) 0.4 % (0.0-1.8); Eosinophils # (Auto) 0.1 K/mm3 (0.0-0.4); Eosinophils % (Auto) 1.5 % (0.0-4.3); Hematocrit 25.4 % (30.3-42.9); Hemoglobin 8.1 gm/dl (10.1-14.3); Lymphocytes # (Auto) 1.3 K/mm3 (1.2-5.4); Mean Corpuscular HGB Conc 32 % (30-34); Mean Corpuscular Volume 72 fl (79-97); Monocytes # (Auto) 0.7 K/mm3 (0.0-0.8); Monocytes % (Auto) 9.7 % (0.0-7.3); Platelet Count 316 K/mm3 (140-440); Red Blood Count 3.53 M/mm3 (3.65-5.03); Red Cell Distribution Width 16.5 % (13.2-15.2)
[2018-09-05 08:10] LABS: BUN/Creatinine Ratio 6; Blood Urea Nitrogen 3 mg/dL (7-17); Calcium 8.1 mg/dL (8.4-10.2); Hemolysis Index 0
[2018-09-05] MEDS: SODIUM CHLORIDE FLUSH SYRINGE 10 ML IV SCH (10:26)
[2018-09-05] MEDS: DIFLUCAN 200 MG/100 ML BAG IV SCH (10:26)
[2018-09-05] MEDS ORDERED: K-DUR PO ONE (15:28)
--- NOTE | 2018-09-05 15:30 | Progress Note ---
Assessment and Plan Assessment and plan: -- Left lower quadrant abdominal abscess Current Visit: Yes Status: Acute Plan to address problem: IV abx initiated Follow Surgery, GI ,ID evaluation and recommendations Continue nothing by mouth status Supportive care --Hypokalemia; 20 mEq IV 1 dose, monitor electrolytes --HTN (hypertension) Current Visit: Yes Status: Chronic Catapress patch initiated when necessary hydralazine --Iron deficiency Anemia Current Visit: Yes Status: Chronic Qualifiers: Anemia type: unspecified type Qualified Code(s): D64.9 - Anemia, unspecified Plan to address problem: Anemia w/u, follow H&H transfuse as needed --Moderate Malnutrition/hypoalbuminemia supportive care, nutrition supplements and patient is able to take oral -- DVT prophylaxis Current Visit: Yes Status: Acute Plan to address problem: SCD History Interval history: Patient seen and examined medical records reviewed Patient feels better no new complaints Patient denies nausea or vomiting Denies abdominal pain Denies fever Vital signs reviewed Hospitalist Physical - Constitutional Vitals: Temp Pulse Resp BP Pulse Ox 98.3 F 89 20 140/97 100 09/05/18 11:56 09/05/18 11:56 09/05/18 11:56 09/05/18 11:56 09/05/18 11:56 General appearance: Present: no acute distress, well-nourished - EENT Eyes: Present: PERRL, EOM intact - Neck Neck: Present: supple, normal ROM - Respiratory Respiratory effort: normal Respiratory: bilateral: diminished, negative: rales, rhonchi, wheezing - Cardiovascular Rhythm: regular Heart Sounds: Present: S1 & S2 - Extremities Extremities: no ischemia, No edema - Abdominal General gastrointestinal: soft, non-tender, non-distended, normal bowel sounds - Integumentary Integumentary: Present: clear, warm - Psychiatric Psychiatric: appropriate mood/affect, cooperative - Neurologic Neurologic: CNII-XII intact, moves all extremities Results - Labs CBC & Chem 7: 09/05/18 06:45 09/05/18 06:45 Labs: Laboratory Last Values WBC 7.5 K/mm3 (4.5-11.0) 09/05/18 06:45 RBC 3.53 M/mm3 (3.65-5.03) L 09/05/18 06:45 Hgb 8.1 gm/dl (10.1-14.3) L 09/05/18 06:45 Hct 25.4 % (30.3-42.9) L 09/05/18 06:45 MCV 72 fl (79-97) L 09/05/18 06:45 MCH 23 pg (28-32) L 09/05/18 06:45 MCHC 32 % (30-34) 09/05/18 06:45 RDW 16.5 % (13.2-15.2) H 09/05/18 06:45 Plt Count 316 K/mm3 (140-440) 09/05/18 06:45 Lymph % (Auto) 17.0 % (13.4-35.0) 09/05/18 06:45 [place] % (Auto) 9.7 % (0.0-7.3) H 09/05/18 06:45 Eos % (Auto) 1.5 % (0.0-4.3) 09/05/18 06:45 Baso % (Auto) 0.4 % (0.0-1.8) 09/05/18 06:45 Lymph # 1.3 K/mm3 (1.2-5.4) 09/05/18 06:45 [place] # 0.7 K/mm3 (0.0-0.8) 09/05/18 06:45 Eos # 0.1 K/mm3 (0.0-0.4) 09/05/18 06:45 Baso # 0.0 K/mm3 (0.0-0.1) 09/05/18 06:45 Seg Neutrophils % 71.4 % (40.0-70.0) H 09/05/18 06:45 Seg Neutrophils # 5.3 K/mm3 (1.8-7.7) 09/05/18 06:45 Sodium 139 mmol/L (137-145) 09/05/18 06:45 Potassium 3.3 mmol/L (3.6-5.0) L 09/05/18 06:45 Chloride 100.1 mmol/L (98-107) 09/05/18 06:45 Carbon Dioxide 26 mmol/L (22-30) 09/05/18 06:45 16 mmol/L 09/05/18 06:45 BUN 3 mg/dL (7-17) L 09/05/18 06:45 0.5 mg/dL (0.7-1.2) L 09/05/18 06:45 Estimated GFR > 60 ml/min 09/05/18 06:45 6 % 09/05/18 06:45 Glucose 94 mg/dL (65-100) 09/05/18 06:45 5.0 % (4-6) 09/03/18 13:20 Calcium 8.1 mg/dL (8.4-10.2) L 09/05/18 06:45 Magnesium 1.70 mg/dL (1.7-2.3) 09/05/18 06:45 Iron 17 ug/dL (37-170) L 09/04/18 07:02 TIBC 234 mcg/dL (250-450) L 09/04/18 07:02 % Saturation 7.26 % 09/04/18 07:02 190 mg/dl (192-382) L 09/04/18 07:02 0.50 mg/dL (0.1-1.2) 09/04/18 07:02 AST 12 units/L (5-40) 09/04/18 07:02 ALT 7 units/L (7-56) 09/04/18 07:02 72 units/L (35-129) 09/04/18 07:02 6.9 g/dL (6.3-8.2) 09/04/18 07:02 3.3 g/dL (3.9-5) L 09/04/18 07:02 0.9 % 09/04/18 07:02 15 units/L (13-60) 09/03/18 13:20 HCG, Qual Negative (Negative) 09/03/18 13:20 [place] (Yellow) 09/03/18 Unknown Hazy (Clear) 09/03/18 Unknown 5.0 (5.0-7.0) 09/03/18 Unknown Ur Specific [place] 1.032 (1.003-1.030) H 09/03/18 Unknown 30 mg/dl mg/dL (Negative) 09/03/18 Unknown Neg mg/dL (Negative) 09/03/18 Unknown Neg mg/dL (Negative) 09/03/18 Unknown Neg (Negative) 09/03/18 Unknown Neg (Negative) 09/03/18 Unknown Neg (Negative) 09/03/18 Unknown 2.0 mg/dL (<2.0) 09/03/18 Unknown Ur Leukocyte Esterase Neg (Negative) 09/03/18 Unknown 6.0 /HPF (0.0-6.0) 09/03/18 Unknown 7.0 /HPF (0.0-6.0) 09/03/18 Unknown U Epithel Cells (Auto) 10.0 /HPF (0-13.0) 09/03/18 Unknown 1+ /HPF (Negative) 09/03/18 Unknown 3+ /HPF 09/03/18 Unknown Active Medications - Current Medications Current Medications: Generic Name Dose Route Start Last Admin Trade Name Freq PRN Reason Stop Dose Admin Acetaminophen 650 mg 09/03/18 21:18 Tylenol PO Q4H PRN Pain MILD(1-3)/Fever >100.5/TARANGO Hydromorphone HCl 0.5 mg 09/03/18 21:18 09/05/18 10:34 Dilaudid IV 0.5 mg Q3H PRN Administration Pain , Severe (7-10) Dextrose/Sodium Chloride 1,000 mls @ 75 mls/hr 09/03/18 22:00 09/05/18 05:15 D5ns IV 75 mls/hr DIRECT DUNCAN Administration Cefepime HCl 2 gm in 100 mls @ 100 mls/hr 09/03/18 22:00 09/05/18 14:39 Maxipime/Ns 2 Gm/100 Ml IV 100 mls/hr Q8HR DUNCAN Administration Fluconazole 200 mg in 100 mls @ 100 mls/hr 09/04/18 14:00 09/05/18 10:26 Diflucan IV 100 mls/hr Q24HR DUNCAN Administration Protocol Metronidazole 500 mg in 100 mls @ 100 mls/hr 09/04/18 15:00 09/05/18 13:19 Flagyl 500 Mg/100 Ml IV 100 mls/hr Q8HR DUNCAN Administration Protocol Metoclopramide HCl 10 mg 09/03/18 21:18 Reglan IV Q6H PRN Nausea And Vomiting Ondansetron HCl 4 mg 09/03/18 21:18 09/05/18 10:34 Zofran IV 4 mg Q3H PRN Administration Nausea And Vomiting Oxymetazoline HCl 2 spray 09/04/18 06:44 09/04/18 08:56 Afrin NS 09/06/18 06:43 2 spray Q12H PRN Administration Nasal Congestion Potassium Chloride 40 meq 09/05/18 15:28 K-Dur PO 09/05/18 15:29 ONCE ONE Potassium Chloride 10 meq 09/06/18 10:00 K-Dur PO QDAY DUNCAN Sodium Chloride 10 ml 09/03/18 22:00 09/05/18 10:26 Sodium Chloride Flush Syringe 10 Ml IV 10 ml BID DUNCAN Administration Sodium Chloride 10 ml 09/03/18 21:18 Sodium Chloride Flush Syringe 10 Ml IV PRN PRN LINE FLUSH
[2018-09-05] MEDS: TYLENOL PO PRN (16:20)
--- NOTE | 2018-09-05 19:33 | Gastroenterology Progress Note ---
Assessment and Plan - Patient Problems (1) Left lower quadrant abdominal abscess Current Visit: Yes Status: Acute Plan to address problem: - Unclear if diverticular or tubo-ovarian. - Responding well to abx, and will advance diet. - Will get outpatient colonoscopy with Dr Amin in approx 2 weeks. - Timing of surgical resection as per the response to abx and the colonoscopy findings. Subjective Date of service: 09/05/18 Principal diagnosis: Abscess Interval history: The patient feels much better today without fevers, chills, nausea, vomiting, or abdominal pain. No BM, but not eating and has chronic constipation (takes daily miralax at home). Objective - Constitutional Vitals: Temp Pulse Resp BP Pulse Ox 98.3 F 82 20 146/84 100 09/05/18 16:41 09/05/18 16:41 09/05/18 16:41 09/05/18 16:41 09/05/18 16:41 General appearance: no acute distress - Respiratory Respiratory effort: normal Respiratory: bilateral: CTA - Cardiovascular Rhythm: regular Heart Sounds: Present: S1 & S2 - Gastrointestinal General gastrointestinal: Present: soft, tender (Minimal LLQ), non-distended - Labs CBC & Chem 7: 09/05/18 06:45 09/05/18 06:45 Labs: Laboratory Results - last 24 hr 09/05/18 09/05/18 06:45 06:45 WBC 7.5 RBC 3.53 L Hgb 8.1 L Hct 25.4 L MCV 72 L MCH 23 L MCHC 32 RDW 16.5 H Plt Count 316 Lymph % (Auto) 17.0 [place] % (Auto) 9.7 H Eos % (Auto) 1.5 Baso % (Auto) 0.4 Lymph # 1.3 [place] # 0.7 Eos # 0.1 Baso # 0.0 Seg Neutrophils % 71.4 H Seg Neutrophils # 5.3 Sodium 139 Potassium 3.3 L Chloride 100.1 Carbon Dioxide 26 Anion Gap 16 BUN 3 L Creatinine 0.5 L Estimated GFR > 60 BUN/Creatinine Ratio 6 Glucose 94 Calcium 8.1 L Magnesium 1.70
[2018-09-06] MEDS: DILAUDID IV PRN ×3 (01:34→20:04)
[2018-09-06] MEDS: SODIUM CHLORIDE FLUSH SYRINGE 10 ML IV SCH ×3 (01:34→22:30)
[2018-09-06] MEDS: ZOFRAN IV PRN ×3 (01:37→12:26)
[2018-09-06] MEDS: MAXIPIME/NS 2 GM/100 ML 2 GM/100 ML BAG IV SCH ×3 (05:49→21:31)
[2018-09-06] MEDS: FLAGYL 500 MG/100 ML 500 MG/100 ML BAG IV SCH ×3 (05:50→21:30)
[2018-09-06 07:40] LABS: Basophils # (Auto) 0.1 K/mm3 (0.0-0.1); Basophils % (Auto) 1.3 % (0.0-1.8); Eosinophils # (Auto) 0.2 K/mm3 (0.0-0.4); Eosinophils % (Auto) 3.6 % (0.0-4.3); Hematocrit 26.2 % (30.3-42.9); Hemoglobin 8.4 gm/dl (10.1-14.3); Lymphocytes # (Auto) 1.2 K/mm3 (1.2-5.4); Lymphocytes % (Auto) 17.4 % (13.4-35.0); Mean Corpuscular HGB Conc 32 % (30-34); Mean Corpuscular Volume 72 fl (79-97); Monocytes # (Auto) 0.7 K/mm3 (0.0-0.8); Monocytes % (Auto) 10.4 % (0.0-7.3); Platelet Count 335 K/mm3 (140-440); Red Blood Count 3.65 M/mm3 (3.65-5.03); Red Cell Distribution Width 16.5 % (13.2-15.2)
[2018-09-06 08:08] LABS: BUN/Creatinine Ratio 6; Blood Urea Nitrogen 3 mg/dL (7-17); Calcium 7.7 mg/dL (8.4-10.2); Hemolysis Index 47
[2018-09-06] MEDS: MIRALAX 3350 PO SCH (09:56)
[2018-09-06] MEDS: DIFLUCAN 200 MG/100 ML BAG IV SCH (09:56)
[2018-09-06] MEDS: K-DUR PO SCH (09:56)
--- NOTE | 2018-09-06 10:30 | Gastroenterology Progress Note ---
Assessment and Plan - Patient Problems (1) Left lower quadrant abdominal abscess Current Visit: Yes Status: Acute Plan to address problem: - Unclear if diverticular or tubo-ovarian. - Responding well to abx, and will continue regular diet. - Will get outpatient colonoscopy with Dr Amin in approx 2 weeks. - Timing of surgical resection as per the response to abx and the colonoscopy findings. - OK to d/c from our service when ID is satisfied with outpatient regimen. Subjective Date of service: 09/06/18 Principal diagnosis: Abscess Interval history: The patient feels well and is tolerating her regular diet. She has mild but improved LLQ pain, and no fevers or chills. She has not passed any blood per rectum. Objective - Constitutional Vitals: Temp Pulse Resp BP Pulse Ox 98.0 F 76 20 134/97 100 09/06/18 05:09 09/06/18 05:09 09/06/18 05:09 09/06/18 05:09 09/06/18 05:09 General appearance: no acute distress - Respiratory Respiratory effort: normal Respiratory: bilateral: CTA - Cardiovascular Rhythm: regular Heart Sounds: Present: S1 & S2 - Gastrointestinal General gastrointestinal: Present: soft, tender (Mild LLQ without guard or peritoneal signs), non-distended - Labs CBC & Chem 7: 09/06/18 06:39 09/06/18 06:39 Labs: Laboratory Results - last 24 hr 09/06/18 09/06/18 06:39 06:39 WBC 6.7 RBC 3.65 Hgb 8.4 L Hct 26.2 L MCV 72 L MCH 23 L MCHC 32 RDW 16.5 H Plt Count 335 Lymph % (Auto) 17.4 [place] % (Auto) 10.4 H Eos % (Auto) 3.6 Baso % (Auto) 1.3 Lymph # 1.2 [place] # 0.7 Eos # 0.2 Baso # 0.1 Seg Neutrophils % 67.3 Seg Neutrophils # 4.5 Sodium 140 Potassium 3.9 Chloride 99.8 Carbon Dioxide 25 Anion Gap 19 BUN 3 L Creatinine 0.5 L Estimated GFR > 60 BUN/Creatinine Ratio 6 Glucose 86 Calcium 7.7 L
--- NOTE | 2018-09-06 10:51 | Progress Note ---
Assessment and Plan - Patient Problems (1) Abdominal pain, left lower quadrant Current Visit: Yes Status: Acute Plan to address problem: Pt stable. Patient is much improved with antibiotic therapy. Prefer to hold off on any surgical intervention until colonoscopy is done. We discussed that she can follow up in the office after the colonoscopy is done and then we can decide on if we should pursue surgical intervention. Ok to begin discharge planning from my perspective. Please call with questions. Time=10min Subjective Date of service: 09/06/18 Patient Reports: Positive: no new complaints, feels better, pain is less Objective Vital Signs - 12hr 09/05/18 09/06/18 23:08 05:09 Temperature 98.8 F 98.0 F Pulse Rate 83 76 Respiratory 20 20 Rate Blood Pressure 148/86 134/97 O2 Sat by Pulse 100 100 Oximetry - General physical appearance no distress, no pain, other (looks much better) - Eyes normal occular movement - Respiratory normal expansion, normal respiratory effort - Abdomen soft, tender (minimal), not distended - Psychiatric oriented to time, oriented to person, oriented to place, speech is normal, memory intact - Labs 09/06/18 06:39 09/06/18 06:39 Diabetes panel 09/06/18 Range/Units 06:39 Sodium 140 (137-145) mmol/L Potassium 3.9 (3.6-5.0) mmol/L Chloride 99.8 (98-107) mmol/L Carbon Dioxide 25 (22-30) mmol/L BUN 3 L (7-17) mg/dL Creatinine 0.5 L (0.7-1.2) mg/dL Glucose 86 (65-100) mg/dL Calcium 7.7 L (8.4-10.2) mg/dL Calcium panel 09/06/18 Range/Units 06:39 Calcium 7.7 L (8.4-10.2) mg/dL Pituitary panel 09/06/18 Range/Units 06:39 Sodium 140 (137-145) mmol/L Potassium 3.9 (3.6-5.0) mmol/L Chloride 99.8 (98-107) mmol/L Carbon Dioxide 25 (22-30) mmol/L BUN 3 L (7-17) mg/dL Creatinine 0.5 L (0.7-1.2) mg/dL Glucose 86 (65-100) mg/dL Calcium 7.7 L (8.4-10.2) mg/dL Adrenal panel 09/06/18 Range/Units 06:39 Sodium 140 (137-145) mmol/L Potassium 3.9 (3.6-5.0) mmol/L Chloride 99.8 (98-107) mmol/L Carbon Dioxide 25 (22-30) mmol/L BUN 3 L (7-17) mg/dL Creatinine 0.5 L (0.7-1.2) mg/dL Glucose 86 (65-100) mg/dL Calcium 7.7 L (8.4-10.2) mg/dL
[2018-09-06] MEDS: THERAGRAN Tab PO SCH (12:26)
--- NOTE | 2018-09-06 16:14 | Progress Note ---
Assessment and Plan Assessment and plan: -- Left lower quadrant abdominal abscess On IV abx cefepime Flagyl and Diflucan but ID Patient's symptoms improving GI recommend outpatient colonoscopy Surgery has recommended outpatient follow-up post colonoscopy Continue current antibiotics, check with ID in the treatment plan Possible discharge on IV versus oral antibiotics if stable Advance the diet as tolerated --Hypokalemia; 20 mEq IV 1 dose, potassium level normal today --HTN (hypertension) Current Visit: Yes Status: Chronic Catapress patch initiated when necessary hydralazine --Iron deficiency Anemia Iron Supplements, follow H&H transfuse as needed --Moderate Malnutrition/hypoalbuminemia supportive care, nutrition supplements and patient is able to take oral -- DVT prophylaxis SCD Possible discharge tomorrow if stable on oral versus IV antibiotics per ID Plan of care reviewed with the patient and her nurse History Interval history: Patient seen and examined medical records reviewed She is better no new complaints Vital signs noted Hospitalist Physical - Constitutional Vitals: Temp Pulse Resp BP Pulse Ox 98.3 F 88 20 138/95 100 09/06/18 12:17 09/06/18 12:17 09/06/18 12:17 09/06/18 12:17 09/06/18 12:17 General appearance: Present: no acute distress, well-nourished - EENT Eyes: Present: PERRL, EOM intact - Neck Neck: Present: supple, normal ROM - Respiratory Respiratory effort: normal Respiratory: bilateral: diminished, negative: rales, rhonchi, wheezing - Cardiovascular Rhythm: regular Heart Sounds: Present: S1 & S2 - Extremities Extremities: no ischemia, No edema - Abdominal General gastrointestinal: soft, non-tender, non-distended, normal bowel sounds - Integumentary Integumentary: Present: clear, warm - Psychiatric Psychiatric: appropriate mood/affect, cooperative - Neurologic Neurologic: moves all extremities Results - Labs CBC & Chem 7: 09/06/18 06:39 09/06/18 06:39 Labs: Laboratory Last Values WBC 6.7 K/mm3 (4.5-11.0) 09/06/18 06:39 RBC 3.65 M/mm3 (3.65-5.03) 09/06/18 06:39 Hgb 8.4 gm/dl (10.1-14.3) L 09/06/18 06:39 Hct 26.2 % (30.3-42.9) L 09/06/18 06:39 MCV 72 fl (79-97) L 09/06/18 06:39 MCH 23 pg (28-32) L 09/06/18 06:39 MCHC 32 % (30-34) 09/06/18 06:39 RDW 16.5 % (13.2-15.2) H 09/06/18 06:39 Plt Count 335 K/mm3 (140-440) 09/06/18 06:39 Lymph % (Auto) 17.4 % (13.4-35.0) 09/06/18 06:39 [place] % (Auto) 10.4 % (0.0-7.3) H 09/06/18 06:39 Eos % (Auto) 3.6 % (0.0-4.3) 09/06/18 06:39 Baso % (Auto) 1.3 % (0.0-1.8) 09/06/18 06:39 Lymph # 1.2 K/mm3 (1.2-5.4) 09/06/18 06:39 [place] # 0.7 K/mm3 (0.0-0.8) 09/06/18 06:39 Eos # 0.2 K/mm3 (0.0-0.4) 09/06/18 06:39 Baso # 0.1 K/mm3 (0.0-0.1) 09/06/18 06:39 Seg Neutrophils % 67.3 % (40.0-70.0) 09/06/18 06:39 Seg Neutrophils # 4.5 K/mm3 (1.8-7.7) 09/06/18 06:39 Sodium 140 mmol/L (137-145) 09/06/18 06:39 Potassium 3.9 mmol/L (3.6-5.0) 09/06/18 06:39 Chloride 99.8 mmol/L (98-107) 09/06/18 06:39 Carbon Dioxide 25 mmol/L (22-30) 09/06/18 06:39 19 mmol/L 09/06/18 06:39 BUN 3 mg/dL (7-17) L 09/06/18 06:39 0.5 mg/dL (0.7-1.2) L 09/06/18 06:39 Estimated GFR > 60 ml/min 09/06/18 06:39 6 % 09/06/18 06:39 Glucose 86 mg/dL (65-100) 09/06/18 06:39 5.0 % (4-6) 09/03/18 13:20 Calcium 7.7 mg/dL (8.4-10.2) L 09/06/18 06:39 Magnesium 1.70 mg/dL (1.7-2.3) 09/05/18 06:45 Iron 17 ug/dL (37-170) L 09/04/18 07:02 TIBC 234 mcg/dL (250-450) L 09/04/18 07:02 % Saturation 7.26 % 09/04/18 07:02 190 mg/dl (192-382) L 09/04/18 07:02 0.50 mg/dL (0.1-1.2) 09/04/18 07:02 AST 12 units/L (5-40) 09/04/18 07:02 ALT 7 units/L (7-56) 09/04/18 07:02 72 units/L (35-129) 09/04/18 07:02 6.9 g/dL (6.3-8.2) 09/04/18 07:02 3.3 g/dL (3.9-5) L 09/04/18 07:02 0.9 % 09/04/18 07:02 15 units/L (13-60) 09/03/18 13:20 HCG, Qual Negative (Negative) 09/03/18 13:20 [place] (Yellow) 09/03/18 Unknown Hazy (Clear) 09/03/18 Unknown 5.0 (5.0-7.0) 09/03/18 Unknown Ur Specific [place] 1.032 (1.003-1.030) H 09/03/18 Unknown 30 mg/dl mg/dL (Negative) 09/03/18 Unknown Neg mg/dL (Negative) 09/03/18 Unknown Neg mg/dL (Negative) 09/03/18 Unknown Neg (Negative) 09/03/18 Unknown Neg (Negative) 09/03/18 Unknown Neg (Negative) 09/03/18 Unknown 2.0 mg/dL (<2.0) 09/03/18 Unknown Ur Leukocyte Esterase Neg (Negative) 09/03/18 Unknown 6.0 /HPF (0.0-6.0) 09/03/18 Unknown 7.0 /HPF (0.0-6.0) 09/03/18 Unknown U Epithel Cells (Auto) 10.0 /HPF (0-13.0) 09/03/18 Unknown 1+ /HPF (Negative) 09/03/18 Unknown 3+ /HPF 09/03/18 Unknown Active Medications - Current Medications Current Medications: Generic Name Dose Route Start Last Admin Trade Name Freq PRN Reason Stop Dose Admin Acetaminophen 650 mg 09/03/18 21:18 09/05/18 16:20 Tylenol PO 650 mg Q4H PRN Administration Pain MILD(1-3)/Fever >100.5/TARANGO Hydromorphone HCl 0.5 mg 09/03/18 21:18 09/06/18 12:18 Dilaudid IV 0.5 mg Q3H PRN Administration Pain , Severe (7-10) Cefepime HCl 2 gm in 100 mls @ 100 mls/hr 09/03/18 22:00 09/06/18 05:49 Maxipime/Ns 2 Gm/100 Ml IV 100 mls/hr Q8HR DUNCAN Administration Fluconazole 200 mg in 100 mls @ 100 mls/hr 09/04/18 14:00 09/06/18 09:56 Diflucan IV 100 mls/hr Q24HR DUNCAN Administration Protocol Metronidazole 500 mg in 100 mls @ 100 mls/hr 09/04/18 15:00 09/06/18 14:58 Flagyl 500 Mg/100 Ml IV 100 mls/hr Q8HR DUNCAN Administration Protocol Metoclopramide HCl 10 mg 09/03/18 21:18 09/05/18 20:35 Reglan IV 10 mg Q6H PRN Administration Nausea And Vomiting Multivitamins 1 each 09/06/18 11:00 09/06/18 12:26 Theragran Tab PO 1 each QDAY DUNCAN Administration Ondansetron HCl 4 mg 09/03/18 21:18 09/06/18 12:26 Zofran IV 4 mg Q3H PRN Administration Nausea And Vomiting Polyethylene Glycol 17 gm 09/06/18 10:00 09/06/18 09:56 Miralax 3350 PO 17 gm QDAY DUNCAN Administration Potassium Chloride 10 meq 09/06/18 10:00 09/06/18 09:56 K-Dur PO 10 meq QDAY DUNCAN Administration Psyllium Hydrophilic Mucilloid 1 each 09/06/18 13:00 Metamucil PO QDAY DUNCAN Sodium Chloride 10 ml 09/03/18 22:00 09/06/18 09:57 Sodium Chloride Flush Syringe 10 Ml IV 10 ml BID DUNCAN Administration Sodium Chloride 10 ml 09/03/18 21:18 Sodium Chloride Flush Syringe 10 Ml IV PRN PRN LINE FLUSH
[2018-09-06] MEDS: METAMUCIL PO SCH (16:17)
[2018-09-07] MEDS: ZOFRAN IV PRN ×2 (00:01→11:15)
[2018-09-07] MEDS: DILAUDID IV PRN ×4 (03:11→19:32)
[2018-09-07] MEDS: FLAGYL 500 MG/100 ML 500 MG/100 ML BAG IV SCH ×3 (05:16→22:08)
[2018-09-07] MEDS: MAXIPIME/NS 2 GM/100 ML 2 GM/100 ML BAG IV SCH ×3 (05:16→23:29)
--- NOTE | 2018-09-07 10:48 | Progress Note ---
Assessment and Plan Previous Cultures: 07/09/18 Abdomen/Surgical: Beta Hemolytic Strep Group C 07/07/18 Blood: no growth Current Cultures: 09/03/18 Blood: no growth A/P: 48-year-old female with a past medical history of diverticulitis and hyperension , that presented in the ED on 09/03/18 with complaints of left lower quadrant pain for the past 3 days. She reports a history of fluid collection in the left lower quadrant that was drained 1-2 months ago. Review of medical records shows that on 07/07/18, patient presented in the ED with abdominal pain and stated that she was diagnosed with diverticulitis by CT a year ago. At that visit, she was diagnosed with abscess abdominal wall rectus muscle. She underwent a CT guided aspiration of LLQ fluid collection and 2-3 ml of purulent material and old blood was aspirated. Abdominal surgical cultures grew Beta Hemolytic strep group C. She was discharged home on Levaquin and Flagyl. She was scheduled to undergo colonoscopy in days with Dr. Amin, [facility]. She reported associated fever and chronic constipation. Now admitted with: 1. Left Lower Abdominal Abscess: Likely diverticulitis abscess vs tubo-ovarian abscess. . CT Pelvis shows 3.5cm x 2.8 cm complex mass with cystic and solid components. Colonic diverticulosis. Prior history of abdominal abscess. S/p drainage 07/09/18. Surgical cultures grew Beta Hemolytic Strep group C. Now being treated with Cefepime. Surgery recommends colonoscopy prior to surgical intervention. outpatient colonoscopy scheduled in 2 weeks. If there is concern for TOA WELCOME CENTER AGENT should be consulted Plan: If there is concern for TOA WEL[facility] C[facility] AGENT should be consulted -discontinue flucanazole 200 mg IV , D4 -continue Flagyl 500 mg , D5 -continue Cefepime 2gms IV every 8 hours, D5 Anticipate discharge on Levaquin 750mg po qday, Doxycyline 100 mg PO BID and Flagyl 500mg PO bid for total 14 days ending 09-17-18 GC/Chlamydia ordered [facility] M: [id number] O:[phone] Subjective Date of service: 09/07/18 Principal diagnosis: Abscess Interval history: Patient seen and examined. Sitting up in bed, reports continued constipation. No fevers. Objective - Exam Narrative Exam: Constitutional: Alert, cooperative. No acute distress Head, Ears, Nose: Normocephalic, atraumatic. External ears, nose normal Eyes: Conjunctivae/corneas clear. No icterus. No ptosis. Neck: Supple, no meningeal signs Oral: dentition good, no thrush Cardiovascular: S1, S2 normal. Respiratory: Good air entry, clear to auscultation bilaterally GI: Soft, non-tender; +chronic constipation. no LL quadrant pain reported Musculoskeletal: No pedal edema, no cyanosis. Skin: No rash or abscess. Hem/Lymphatic: No palpable cervical or supraclavicular nodes. No lymphangitis Psych: Mood ok. Affect normal Neurological: Awake, alert, oriented. - Constitutional Vitals: Vital Signs Temp Pulse Resp BP Pulse Ox 98.5 F 85 18 125/74 100 09/07/18 04:47 09/07/18 04:47 09/07/18 04:47 09/07/18 04:47 09/07/18 04:47 Temperature -Last 24 Hours Temperature 98.5 F Temperature 99.4 F Temperature 98.3 F - Labs CBC & Chem 7: 09/06/18 06:39 09/06/18 06:39
[2018-09-07] MEDS: DIFLUCAN 200 MG/100 ML BAG IV SCH (10:52)
[2018-09-07] MEDS: THERAGRAN Tab PO SCH (10:53)
[2018-09-07] MEDS: K-DUR PO SCH (10:53)
[2018-09-07] MEDS: MIRALAX 3350 PO SCH (10:53)
[2018-09-07] MEDS: SODIUM CHLORIDE FLUSH SYRINGE 10 ML IV SCH ×2 (10:54→22:09)
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
[2018-09-07] MEDS: METAMUCIL PO SCH (13:29)
[2018-09-07] MEDS: FLEXERIL PO PRN (13:48)
--- NOTE | 2018-09-07 14:08 | Progress Note ---
Assessment and Plan Assessment and plan: -- Left lower quadrant abdominal abscess On IV abx cefepime Flagyl and Diflucan but ID Patient's symptoms improved GI evaluated and recommend outpatient colonoscopy Surgery evaluated and recommended outpatient follow-up post colonoscopy Continue current antibiotics, check with ID, the treatment plan Possible discharge on IV versus oral antibiotics if stable Advance the diet as tolerated --Left tubo ovarian mass pelvic and transvaginal ultrasound, FPGA ENGINEER evaluation ID Following --Hypokalemia;Resolved --HTN (hypertension) Catapress patch initiated when necessary hydralazine --Iron deficiency Anemia Iron Supplements, follow H&H transfuse as needed --Moderate Malnutrition/hypoalbuminemia supportive care, nutrition supplements and patient is able to take oral -- DVT prophylaxis SCD Possible discharge tomorrow if stable on oral versus IV antibiotics per ID Plan of care reviewed with the patient and her nurse Follow-up pelvic ultrasound and FPGA ENGINEER consult, possible discharge in 1-2 days if stable History Interval history: Patient seen and examined medical records reviewed Patient feels better no new complaints Vital signs noted Objective and oriented 3 Not in acute distress Hospitalist Physical - Constitutional Vitals: Temp Pulse Resp BP Pulse Ox 98.5 F 85 18 125/74 100 09/07/18 04:47 09/07/18 04:47 09/07/18 04:47 09/07/18 04:47 09/07/18 04:47 General appearance: Present: no acute distress, well-nourished - EENT Eyes: Present: PERRL, EOM intact - Neck Neck: Present: supple, normal ROM - Respiratory Respiratory effort: normal Respiratory: bilateral: diminished, negative: rales, rhonchi, wheezing - Cardiovascular Rhythm: regular Heart Sounds: Present: S1 & S2 - Extremities Extremities: no ischemia, No edema - Abdominal General gastrointestinal: soft, non-tender, non-distended, normal bowel sounds - Integumentary Integumentary: Present: clear, warm - Psychiatric Psychiatric: appropriate mood/affect, cooperative - Neurologic Neurologic: moves all extremities Results - Labs CBC & Chem 7: 09/06/18 06:39 09/06/18 06:39 Labs: Laboratory Last Values WBC 6.7 K/mm3 (4.5-11.0) 09/06/18 06:39 RBC 3.65 M/mm3 (3.65-5.03) 09/06/18 06:39 Hgb 8.4 gm/dl (10.1-14.3) L 09/06/18 06:39 Hct 26.2 % (30.3-42.9) L 09/06/18 06:39 MCV 72 fl (79-97) L 09/06/18 06:39 MCH 23 pg (28-32) L 09/06/18 06:39 MCHC 32 % (30-34) 09/06/18 06:39 RDW 16.5 % (13.2-15.2) H 09/06/18 06:39 Plt Count 335 K/mm3 (140-440) 09/06/18 06:39 Lymph % (Auto) 17.4 % (13.4-35.0) 09/06/18 06:39 [place] % (Auto) 10.4 % (0.0-7.3) H 09/06/18 06:39 Eos % (Auto) 3.6 % (0.0-4.3) 09/06/18 06:39 Baso % (Auto) 1.3 % (0.0-1.8) 09/06/18 06:39 Lymph # 1.2 K/mm3 (1.2-5.4) 09/06/18 06:39 [place] # 0.7 K/mm3 (0.0-0.8) 09/06/18 06:39 Eos # 0.2 K/mm3 (0.0-0.4) 09/06/18 06:39 Baso # 0.1 K/mm3 (0.0-0.1) 09/06/18 06:39 Seg Neutrophils % 67.3 % (40.0-70.0) 09/06/18 06:39 Seg Neutrophils # 4.5 K/mm3 (1.8-7.7) 09/06/18 06:39 Sodium 140 mmol/L (137-145) 09/06/18 06:39 Potassium 3.9 mmol/L (3.6-5.0) 09/06/18 06:39 Chloride 99.8 mmol/L (98-107) 09/06/18 06:39 Carbon Dioxide 25 mmol/L (22-30) 09/06/18 06:39 19 mmol/L 09/06/18 06:39 BUN 3 mg/dL (7-17) L 09/06/18 06:39 0.5 mg/dL (0.7-1.2) L 09/06/18 06:39 Estimated GFR > 60 ml/min 09/06/18 06:39 6 % 09/06/18 06:39 Glucose 86 mg/dL (65-100) 09/06/18 06:39 5.0 % (4-6) 09/03/18 13:20 Calcium 7.7 mg/dL (8.4-10.2) L 09/06/18 06:39 Magnesium 1.70 mg/dL (1.7-2.3) 09/05/18 06:45 Iron 17 ug/dL (37-170) L 09/04/18 07:02 TIBC 234 mcg/dL (250-450) L 09/04/18 07:02 % Saturation 7.26 % 09/04/18 07:02 190 mg/dl (192-382) L 09/04/18 07:02 0.50 mg/dL (0.1-1.2) 09/04/18 07:02 AST 12 units/L (5-40) 09/04/18 07:02 ALT 7 units/L (7-56) 09/04/18 07:02 72 units/L (35-129) 09/04/18 07:02 6.9 g/dL (6.3-8.2) 09/04/18 07:02 3.3 g/dL (3.9-5) L 09/04/18 07:02 0.9 % 09/04/18 07:02 15 units/L (13-60) 09/03/18 13:20 HCG, Qual Negative (Negative) 09/03/18 13:20 [place] (Yellow) 09/03/18 Unknown Hazy (Clear) 09/03/18 Unknown 5.0 (5.0-7.0) 09/03/18 Unknown Ur Specific [place] 1.032 (1.003-1.030) H 09/03/18 Unknown 30 mg/dl mg/dL (Negative) 09/03/18 Unknown Neg mg/dL (Negative) 09/03/18 Unknown Neg mg/dL (Negative) 09/03/18 Unknown Neg (Negative) 09/03/18 Unknown Neg (Negative) 09/03/18 Unknown Neg (Negative) 09/03/18 Unknown 2.0 mg/dL (<2.0) 09/03/18 Unknown Ur Leukocyte Esterase Neg (Negative) 09/03/18 Unknown 6.0 /HPF (0.0-6.0) 09/03/18 Unknown 7.0 /HPF (0.0-6.0) 09/03/18 Unknown U Epithel Cells (Auto) 10.0 /HPF (0-13.0) 09/03/18 Unknown 1+ /HPF (Negative) 09/03/18 Unknown 3+ /HPF 09/03/18 Unknown Active Medications - Current Medications Current Medications: Generic Name Dose Route Start Last Admin Trade Name Freq PRN Reason Stop Dose Admin Acetaminophen 650 mg 09/03/18 21:18 09/05/18 16:20 Tylenol PO 650 mg Q4H PRN Administration Pain MILD(1-3)/Fever >100.5/TARANGO Cyclobenzaprine HCl 5 mg 09/07/18 11:16 09/07/18 13:48 Flexeril PO 5 mg Q8H PRN Administration Muscle Spasm Hydromorphone HCl 0.5 mg 09/03/18 21:18 09/07/18 11:16 Dilaudid IV 0.5 mg Q3H PRN Administration Pain , Severe (7-10) Cefepime HCl 2 gm in 100 mls @ 100 mls/hr 09/03/18 22:00 09/07/18 05:16 Maxipime/Ns 2 Gm/100 Ml IV 100 mls/hr Q8HR DUNCAN Administration Metronidazole 500 mg in 100 mls @ 100 mls/hr 09/04/18 15:00 09/07/18 05:16 Flagyl 500 Mg/100 Ml IV 100 mls/hr Q8HR DUNCAN Administration Protocol Metoclopramide HCl 10 mg 09/03/18 21:18 09/05/18 20:35 Reglan IV 10 mg Q6H PRN Administration Nausea And Vomiting Multivitamins 1 each 09/06/18 11:00 09/07/18 10:53 Theragran Tab PO 1 each QDAY DUNCAN Administration Ondansetron HCl 4 mg 09/03/18 21:18 09/07/18 11:15 Zofran IV 4 mg Q3H PRN Administration Nausea And Vomiting Polyethylene Glycol 17 gm 09/06/18 10:00 09/07/18 10:53 Miralax 3350 PO 17 gm QDAY DUNCAN Administration Potassium Chloride 10 meq 09/06/18 10:00 09/07/18 10:53 K-Dur PO 10 meq QDAY DUNCAN Administration Psyllium Hydrophilic Mucilloid 1 each 09/06/18 13:00 09/07/18 13:29 Metamucil PO 1 each QDAY DUNCAN Administration Sodium Chloride 10 ml 09/03/18 22:00 09/07/18 10:54 Sodium Chloride Flush Syringe 10 Ml IV 10 ml BID DUNCAN Administration Sodium Chloride 10 ml 09/03/18 21:18 Sodium Chloride Flush Syringe 10 Ml IV PRN PRN LINE FLUSH
[2018-09-08] MEDS: DILAUDID IV PRN ×4 (00:54→20:01)
[2018-09-08] MEDS: MAXIPIME/NS 2 GM/100 ML 2 GM/100 ML BAG IV SCH ×3 (05:55→22:09)
[2018-09-08] MEDS: FLAGYL 500 MG/100 ML 500 MG/100 ML BAG IV SCH ×3 (06:52→22:10)
[2018-09-08] MEDS: ZOFRAN IV PRN ×3 (07:59→20:01)
[2018-09-08] MEDS: K-DUR PO SCH (10:32)
[2018-09-08] MEDS: METAMUCIL PO SCH (10:32)
[2018-09-08] MEDS: THERAGRAN Tab PO SCH (10:32)
[2018-09-08] MEDS: VIBRAMYCIN PO SCH ×2 (10:32→22:10)
--- NOTE | 2018-09-08 10:50 | Progress Note ---
Assessment and Plan Previous Cultures: 07/09/18 Abdomen/Surgical: Beta Hemolytic Strep Group C 07/07/18 Blood: no growth Current Cultures: 09/03/18 Blood: no growth 09/04/2018 MRSA: negative A/P: 48-year-old female with a past medical history of diverticulitis and hyperension, that presented in the ED on 09/03/18 with complaints of left lower quadrant pain for the past 3 days. She reports a history of fluid collection in the left lower quadrant that was drained 1-2 months ago. Review of medical records shows that on 07/07/18, patient presented in the ED with abdominal pain and stated that she was diagnosed with diverticulitis by CT a year ago. At that visit, she was diagnosed with abscess abdominal wall rectus muscle. She underwent a CT guided aspiration of LLQ fluid collection and 2-3 ml of purulent material and old blood was aspirated. Abdominal surgical cultures grew Beta Hemolytic strep group C. She was discharged home on Levaquin and Flagyl. She was scheduled to undergo colonoscopy in days with Dr. Amin, [facility]. She reported associated fever and chronic constipation. Now admitted with: 1. Left Lower Abdominal Abscess: Likely diverticulitis abscess vs tubo-ovarian abscess. . CT Pelvis shows 3.5cm x 2.8 cm complex mass with cystic and solid components. Colonic diverticulosis. Prior history of abdominal abscess. S/p drainage 07/09/18. Surgical cultures grew Beta Hemolytic Strep group C. Now being treated with Cefepime. Surgery recommends colonoscopy prior to surgical intervention. outpatient colonoscopy scheduled in 2 weeks. If there is concern for TOA PUBLICITY PERSON should be consulted. Transvaginal and Pelvic US ordered. Plan: -continue Flagyl 500 mg , D6 -continue Cefepime 2gms IV every 8 hours, D6 -Start Doxycycline 100mg PO BID -Anticipate discharge on Levaquin 750mg po qday, Doxycyline 100 mg PO BID and Flagyl 500mg PO bid for total 14 days ending 09-17-18 -follow-up GC/Chlamydia -follow-up PUBLICITY PERSON evaluation for TOA -follow up transvaginal and pelvic US results [facility] M: [id number] O:[phone] Subjective Date of service: 09/08/18 Principal diagnosis: Abscess Interval history: Patient seen and examined. Sitting up in bed, reports continued constipation and mild abdominal pain. No fevers. Objective - Exam Narrative Exam: Constitutional: Alert, cooperative. No acute distress Head, Ears, Nose: Normocephalic, atraumatic. External ears, nose normal Eyes: Conjunctivae/corneas clear. No icterus. No ptosis. Neck: Supple, no meningeal signs Oral: dentition good, no thrush Cardiovascular: S1, S2 normal. Respiratory: Good air entry, clear to auscultation bilaterally GI: Soft, non-tender; +chronic constipation. mild abdominal pain and tenderness Musculoskeletal: No pedal edema, no cyanosis. Skin: No rash or abscess. Hem/Lymphatic: No palpable cervical or supraclavicular nodes. No lymphangitis Psych: Mood ok. Affect normal Neurological: Awake, alert, oriented. - Constitutional Vitals: Vital Signs Temp Pulse Resp BP Pulse Ox 98.5 F 79 18 139/79 97 09/08/18 05:20 09/08/18 05:20 09/08/18 05:20 09/08/18 05:20 09/08/18 05:20 Temperature -Last 24 Hours Temperature 98.5 F Temperature 98.5 F - Labs CBC & Chem 7: 09/06/18 06:39 09/06/18 06:39
--- NOTE | 2018-09-08 13:07 | Progress Note ---
Assessment and Plan Assessment and plan: -- Left lower quadrant abdominal abscess On IV abx cefepime Flagyl and Diflucan but ID Patient's symptoms improved GI evaluated and recommend outpatient colonoscopy Surgery evaluated and recommended outpatient follow-up post colonoscopy Continue current antibiotics, check with ID, the treatment plan Possible discharge on IV versus oral antibiotics if stable Advance the diet as tolerated --Left tubo ovarian mass pelvic and transvaginal ultrasound, PAPER BALING MACHINE OPERATOR evaluation ID Following --Hypokalemia;Resolved --HTN (hypertension) Catapress patch initiated when necessary hydralazine --Iron deficiency Anemia Iron Supplements, follow H&H transfuse as needed --Moderate Malnutrition/hypoalbuminemia supportive care, nutrition supplements and patient is able to take oral -- DVT prophylaxis SCD Possible discharge tomorrow if stable on oral versus IV antibiotics per ID Plan of care reviewed with the patient and her nurse Follow-up pelvic ultrasound and PAPER BALING MACHINE OPERATOR consult, possible discharge in 1-2 days if s Follow-up pelvic and transvaginal ultrasound findings Follow PAPER BALING MACHINE OPERATOR evaluation Possible discharge in 1-2 days if stable History Interval history: Patient seen and examined medical records reviewed Pandey in no new complaints Attending transvaginal ultrasound Awaiting PAPER BALING MACHINE OPERATOR evaluation Vital signs noted Hospitalist Physical - Constitutional Vitals: Temp Pulse Resp BP Pulse Ox 99.5 F 83 19 137/79 98 09/08/18 12:11 09/08/18 12:11 09/08/18 12:11 09/08/18 12:11 09/08/18 12:11 General appearance: Present: no acute distress, well-nourished - EENT Eyes: Present: PERRL, EOM intact - Neck Neck: Present: supple, normal ROM - Respiratory Respiratory effort: normal Respiratory: negative: rales, rhonchi, wheezing - Cardiovascular Rhythm: regular Heart Sounds: Present: S1 & S2 - Extremities Extremities: no ischemia Peripheral Pulses: within normal limits - Abdominal General gastrointestinal: soft, non-tender, non-distended, normal bowel sounds - Integumentary Integumentary: Present: clear - Psychiatric Psychiatric: appropriate mood/affect, cooperative - Neurologic Neurologic: CNII-XII intact, moves all extremities Results - Labs CBC & Chem 7: 09/06/18 06:39 09/06/18 06:39 Labs: Laboratory Last Values WBC 6.7 K/mm3 (4.5-11.0) 09/06/18 06:39 RBC 3.65 M/mm3 (3.65-5.03) 09/06/18 06:39 Hgb 8.4 gm/dl (10.1-14.3) L 09/06/18 06:39 Hct 26.2 % (30.3-42.9) L 09/06/18 06:39 MCV 72 fl (79-97) L 09/06/18 06:39 MCH 23 pg (28-32) L 09/06/18 06:39 MCHC 32 % (30-34) 09/06/18 06:39 RDW 16.5 % (13.2-15.2) H 09/06/18 06:39 Plt Count 335 K/mm3 (140-440) 09/06/18 06:39 Lymph % (Auto) 17.4 % (13.4-35.0) 09/06/18 06:39 Lucas % (Auto) 10.4 % (0.0-7.3) H 09/06/18 06:39 Eos % (Auto) 3.6 % (0.0-4.3) 09/06/18 06:39 Baso % (Auto) 1.3 % (0.0-1.8) 09/06/18 06:39 Lymph # 1.2 K/mm3 (1.2-5.4) 09/06/18 06:39 Lucas # 0.7 K/mm3 (0.0-0.8) 09/06/18 06:39 Eos # 0.2 K/mm3 (0.0-0.4) 09/06/18 06:39 Baso # 0.1 K/mm3 (0.0-0.1) 09/06/18 06:39 Seg Neutrophils % 67.3 % (40.0-70.0) 09/06/18 06:39 Seg Neutrophils # 4.5 K/mm3 (1.8-7.7) 09/06/18 06:39 Sodium 140 mmol/L (137-145) 09/06/18 06:39 Potassium 3.9 mmol/L (3.6-5.0) 09/06/18 06:39 Chloride 99.8 mmol/L (98-107) 09/06/18 06:39 Carbon Dioxide 25 mmol/L (22-30) 09/06/18 06:39 19 mmol/L 09/06/18 06:39 BUN 3 mg/dL (7-17) L 09/06/18 06:39 0.5 mg/dL (0.7-1.2) L 09/06/18 06:39 Estimated GFR > 60 ml/min 09/06/18 06:39 6 % 09/06/18 06:39 Glucose 86 mg/dL (65-100) 09/06/18 06:39 5.0 % (4-6) 09/03/18 13:20 Calcium 7.7 mg/dL (8.4-10.2) L 09/06/18 06:39 Magnesium 1.70 mg/dL (1.7-2.3) 09/05/18 06:45 Iron 17 ug/dL (37-170) L 09/04/18 07:02 TIBC 234 mcg/dL (250-450) L 09/04/18 07:02 % Saturation 7.26 % 09/04/18 07:02 190 mg/dl (192-382) L 09/04/18 07:02 0.50 mg/dL (0.1-1.2) 09/04/18 07:02 AST 12 units/L (5-40) 09/04/18 07:02 ALT 7 units/L (7-56) 09/04/18 07:02 72 units/L (35-129) 09/04/18 07:02 6.9 g/dL (6.3-8.2) 09/04/18 07:02 3.3 g/dL (3.9-5) L 09/04/18 07:02 0.9 % 09/04/18 07:02 15 units/L (13-60) 09/03/18 13:20 RBC Folic Acid >1000 ng/mL (>280) 09/04/18 07:02 HCG, Qual Negative (Negative) 09/03/18 13:20 Mary Jo (Yellow) 09/03/18 Unknown Hazy (Clear) 09/03/18 Unknown 5.0 (5.0-7.0) 09/03/18 Unknown Ur Specific [place] 1.032 (1.003-1.030) H 09/03/18 Unknown 30 mg/dl mg/dL (Negative) 09/03/18 Unknown Neg mg/dL (Negative) 09/03/18 Unknown Neg mg/dL (Negative) 09/03/18 Unknown Neg (Negative) 09/03/18 Unknown Neg (Negative) 09/03/18 Unknown Neg (Negative) 09/03/18 Unknown 2.0 mg/dL (<2.0) 09/03/18 Unknown Ur Leukocyte Esterase Neg (Negative) 09/03/18 Unknown 6.0 /HPF (0.0-6.0) 09/03/18 Unknown 7.0 /HPF (0.0-6.0) 09/03/18 Unknown U Epithel Cells (Auto) 10.0 /HPF (0-13.0) 09/03/18 Unknown 1+ /HPF (Negative) 09/03/18 Unknown 3+ /HPF 09/03/18 Unknown Active Medications - Current Medications Current Medications: Generic Name Dose Route Start Last Admin Trade Name Freq PRN Reason Stop Dose Admin Acetaminophen 650 mg 09/03/18 21:18 09/05/18 16:20 Tylenol PO 650 mg Q4H PRN Administration Pain MILD(1-3)/Fever >100.5/TARANGO Cyclobenzaprine HCl 5 mg 09/07/18 11:16 09/07/18 13:48 Flexeril PO 5 mg Q8H PRN Administration Muscle Spasm Doxycycline Hyclate 100 mg 09/08/18 10:00 09/08/18 10:32 Vibramycin PO 100 mg BID DUNCAN Administration Hydromorphone HCl 0.5 mg 09/03/18 21:18 09/08/18 07:59 Dilaudid IV 0.5 mg Q3H PRN Administration Pain , Severe (7-10) Cefepime HCl 2 gm in 100 mls @ 100 mls/hr 09/03/18 22:00 09/08/18 05:55 Maxipime/Ns 2 Gm/100 Ml IV 100 mls/hr Q8HR DUNCAN Administration Metronidazole 500 mg in 100 mls @ 100 mls/hr 09/04/18 15:00 09/08/18 06:52 Flagyl 500 Mg/100 Ml IV 100 mls/hr Q8HR DUNCAN Administration Protocol Metoclopramide HCl 10 mg 09/03/18 21:18 09/05/18 20:35 Reglan IV 10 mg Q6H PRN Administration Nausea And Vomiting Multivitamins 1 each 09/06/18 11:00 09/08/18 10:32 Theragran Tab PO 1 each QDAY DUNCAN Administration Ondansetron HCl 4 mg 09/03/18 21:18 09/08/18 07:59 Zofran IV 4 mg Q3H PRN Administration Nausea And Vomiting Polyethylene Glycol 17 gm 09/06/18 10:00 09/07/18 10:53 Miralax 3350 PO 17 gm QDAY DUNCAN Administration Potassium Chloride 10 meq 09/06/18 10:00 09/08/18 10:32 K-Dur PO 10 meq QDAY DUNCAN Administration Psyllium Hydrophilic Mucilloid 1 each 09/06/18 13:00 09/08/18 10:32 Metamucil PO 1 each QDAY DUNCAN Administration Sodium Chloride 10 ml 09/03/18 22:00 09/07/18 22:09 Sodium Chloride Flush Syringe 10 Ml IV 10 ml BID DUNCAN Administration Sodium Chloride 10 ml 09/03/18 21:18 Sodium Chloride Flush Syringe 10 Ml IV PRN PRN LINE FLUSH
[2018-09-08] MEDS: SODIUM CHLORIDE FLUSH SYRINGE 10 ML IV SCH ×2 (14:23→22:10)
[2018-09-08] MEDS: MIRALAX 3350 PO SCH (14:31)
--- NOTE | 2018-09-08 15:47 | Discharge Summary ---
Providers - Providers Date of Admission: 09/03/18 18:06 Date of discharge: 09/09/18 Attending physician: GISELLE FOSS 09/03/18 18:07 Consult to Physician [CONS] Stat Comment: Consulting Provider: LALI CRUZ Physician Instructions: Reason For Exam: ABD PAIN 09/04/18 06:58 Consult to Physician [CONS] Routine Comment: Consulting Provider: MAN ACEVES Physician Instructions: Reason For Exam: Sigmoid/LLQ abscess 09/04/18 08:00 Consult to Physician [CONS] Stat Comment: CONCERN FOR CHRONIC INFECTION Consulting Provider: MALVIN GARCIA Physician Instructions: Reason For Exam: ABDOMINAL FLUID COLLECTION 09/07/18 14:02 Consult to Physician [CONS] Stat Comment: Consulting Provider: RICKI CORDERO Physician Instructions: Reason For Exam: ? Lt tubo ovarian mass Primary care physician: [facility], MD Hospitalization Reason for admission: LTLQ pain and Lt pelvic mass Condition: Stable Pertinent studies: ct bdomen and pelvis US abdomen transvaginal US Pelvic US Hospital course: 48-year-old female presents to ED with left lower quadrant pain 3 days. Patient reports history of fluid collection in left lower quadrant which was drained 1-2 months ago. Patient states at that time it was unclear whether or not she actually had diverticulitis. Patient is scheduled to undergo colonoscopy next week, in 5 days, with Dr. Aceves, [facility]. Patient reports associated fever, chronic constipation. Patient was admitted managed appropriately,evaluated by Gen Surgeon,GI, Marketing Business Analyst and ID GI rec out patient colonoscopy,Surgery rec out pt f/u post colonoscopy. BREAK UP WORKER adv f/u as out pt post colonoscopy., ID evaluated the patient and rec appropriate antibiotics. Today patient feels slightly better,Cleared by all the specialists for discharge and f/u with them respectively upon discharge Discharge Diagnosis: -- Left lower quadrant abdominal abscess On IV abx cefepime Flagyl and Diflucan but ID Patient's symptoms improved GI evaluated and recommend outpatient colonoscopy Surgery evaluated and recommended outpatient follow-up post colonoscopy Continue current antibiotics, check with ID, the treatment plan Possible discharge on IV versus oral antibiotics if stable Advance the diet as tolerated --Left tubo ovarian mass pelvic and transvaginal ultrasound, BREAK UP WORKER evaluation ID Following --Hypokalemia;Resolved --HTN (hypertension) Catapress patch initiated when necessary hydralazine --Iron deficiency Anemia Iron Supplements, follow H&H transfuse as needed --Moderate Malnutrition/hypoalbuminemia supportive care, nutrition supplements and patient is able to take oral -- DVT prophylaxis SCD Discharge home, follow PMD, BREAK UP WORKER, GI, ID, surgery per schedule Get pending pelvic ultrasound, transvaginal ultrasound report from Ultrasound department at [phone] and check with BREAK UP WORKER Disposition: DC-01 TO HOME OR SELFCARE Time spent for discharge: 32 min Core Measure Documentation - Palliative Care Palliative Care/ Comfort Measures: Not Applicable - Core Measures Any of the following diagnoses?: none Exam - Constitutional Vitals: Temp Pulse Resp BP Pulse Ox 99.5 F 83 19 137/79 98 09/08/18 12:11 09/08/18 12:11 09/08/18 12:11 09/08/18 12:11 09/08/18 12:11 General appearance: Present: no acute distress, well-nourished - EENT Eyes: Present: PERRL, EOM intact - Neck Neck: Present: supple, normal ROM - Respiratory Respiratory effort: normal, pursed lips - Cardiovascular Rhythm: regular Heart Sounds: Present: S1 & S2 - Extremities Extremities: no ischemia, No edema Plan Activity: no restrictions Diet: regular Additional Instructions: Diet as tolerated. Advised to follow, BREAK UP WORKER, GI, surgery.ID and primary care physician per schedule Follow up with: LALI CRUZ MD [Staff Physician] - 14 Days BERNABE PALMA MD [Staff Physician] - 7 Days MALVIN GARCIA MD [Staff Physician] - 7 Days RUSSELL SPRINGS JUAN MMARTISHERIDAN MD YULIA [Primary Care Provider] - 3-5 Days GUICHO MCNAIR MD [Staff Physician] - 7 Days RICKI CORDERO MD [Staff Physician] - 7 Days Prescriptions: Dicyclomine [Bentyl] 10 mg PO TID PRN #15 capsule PRN Reason: Pain , Severe (7-10) metroNIDAZOLE [Flagyl] 500 mg PO Q12HR #20 tab Cyclobenzaprine [Flexeril 10 MG TAB] 5 mg PO Q8H PRN #15 tablet PRN Reason: Muscle Spasm levoFLOXacin [Levaquin] 750 mg PO QDAY #9 tablet oxyCODONE /ACETAMINOPHEN [Percocet 5/325] 1 tab PO BID PRN #6 tablet PRN Reason: Pain , Severe (7-10) DOXYCYCLINE Hyclate [Vibramycin CAP] 100 mg PO BID #20 capsule
--- NOTE | 2018-09-08 17:00 | Ultrasound Report ---
PROCEDURE: US transabdominal and TRANSVAGINAL TECHNIQUE: Real-time transabdominal sonography in multiple planes of the pelvis was performed. The p elvic structures, especially the ovaries, were not optimally visualized. Transvaginal sonography was then performed to better evaluate the structures and/or abnormalities described below with image docu mentation. HISTORY: ? Lt tubo ovarian mass, fever and left pelvic pain COMPARISONS: CT 09/03/2018 . FINDINGS: UTERUS Size: 11.5 x 5.3 x 6.8 cm. Endometrial thickness: 21 mm. Orientation: anteverted. Cervix: Normal. Fibroids/masses: There are 2 anterior mural fibroids present, one measuring 1.6 cm and the other gisela uring 0.8 cm. RIGHT Ovary: 2.7 x 1.7 x 4.0 cm. Appearance: There is a 2 cm simple cyst present. LEFT Ovary: 2.5 x 1.7 x 2.5 cm. Appearance: Normal. Pelvic fluid: None. Other: In the left pelvis there is a fluid-filled tubular structure, possibly related to a hydrosalpi nx. There is also a complex heterogeneous echogenic masslike area in the left pelvis which measures 5 .7 x 6.0 x 2.7 cm. There is peripheral vascularity. This appears separate from the left ovary.. IMPRESSION: In the left pelvis there is a fluid-filled tubular structure, possibly related to a hydrosalpinx. There is also a complex heterogeneous echogenic masslike area in the left pelvis which measures 5.7 x 6.0 x 2.7 cm. There is peripheral vascularity. This appears separate from the left ovary. This could be related to area of phlegmon or soft tissue mass. No drainable fluid collection is seen. Thickened endometrium. Recommend further evaluation to exclude endometrial pathology. This document is electronically signed by Radha Bucio MD., September 08 2018 04:59:18 PM ET
[2018-09-09] MEDS: ZOFRAN IV PRN ×4 (00:19→17:42)
[2018-09-09] MEDS: DILAUDID IV PRN ×5 (00:19→16:50)
[2018-09-09] MEDS: FLAGYL 500 MG/100 ML 500 MG/100 ML BAG IV SCH ×2 (05:40→13:14)
[2018-09-09] MEDS: MAXIPIME/NS 2 GM/100 ML 2 GM/100 ML BAG IV SCH ×2 (05:41→13:13)
[2018-09-09] MEDS: FLEXERIL PO PRN (07:04)
[2018-09-09] MEDS: THERAGRAN Tab PO SCH (10:14)
[2018-09-09] MEDS: VIBRAMYCIN PO SCH (10:14)
[2018-09-09] MEDS: MIRALAX 3350 PO SCH ×2 (10:14→10:20)
[2018-09-09] MEDS: K-DUR PO SCH (10:14)
[2018-09-09] MEDS: METAMUCIL PO SCH (10:15)
[2018-09-09] MEDS: SODIUM CHLORIDE FLUSH SYRINGE 10 ML IV SCH (10:19)
--- NOTE | 2018-09-09 10:21 | Progress Note ---
Assessment and Plan Previous Cultures: 07/09/18 Abdomen/Surgical: Beta Hemolytic Strep Group C 07/07/18 Blood: no growth Current Cultures: 09/03/18 Blood: no growth 09/04/2018 MRSA: negative A/P: 48-year-old female with a past medical history of diverticulitis and hyperension, that presented in the ED on 09/03/18 with complaints of left lower quadrant pain for the past 3 days. She reports a history of fluid collection in the left lower quadrant that was drained 1-2 months ago. Review of medical records shows that on 07/07/18, patient presented in the ED with abdominal pain and stated that she was diagnosed with diverticulitis by CT a year ago. At that visit, she was diagnosed with abscess abdominal wall rectus muscle. She underwent a CT guided aspiration of LLQ fluid collection and 2-3 ml of purulent material and old blood was aspirated. Abdominal surgical cultures grew Beta Hemolytic strep group C. She was discharged home on Levaquin and Flagyl. She was scheduled to undergo colonoscopy in days with Dr. Amin, [facility]. She reported associated fever and chronic constipation. Now admitted with: 1. Left Lower Abdominal Abscess: Likely diverticulitis abscess vs tubo-ovarian abscess. . CT Pelvis shows 3.5cm x 2.8 cm complex mass with cystic and solid components. Colonic diverticulosis. Prior history of abdominal abscess. S/p drainage 07/09/18. Surgical cultures grew Beta Hemolytic Strep group C. Now being treated with Cefepime. Surgery recommends colonoscopy prior to surgical intervention. outpatient colonoscopy scheduled in 2 weeks. If there is concern for TOA VICE SQUAD POLICE OFFICER should be consulted. Pelvic US shows a complex heterogeneous echogenic masslike area in the left pelvis which measures 5.7 x 6.0 x 2.7 cm. There is peripheral vascularity. This appears separate from the left ovary. This could be related to area of phlegmon or soft tissue mass. No drainable fluid collection is seen. Plan: -continue Flagyl 500 mg , D6 -continue Cefepime 2gms IV every 8 hours, D6 -continue Doxycycline 100mg PO BID -follow-up GC/Chlamydia -patient seen by VICE [employer] POLICE OFFICER-note reviewed -Anticipate discharge on Levaquin 750mg po qday, Doxycyline 100 mg PO BID and Flagyl 500mg PO bid for total 14 days ending 09-17-18 ID follow-up in 3 weeks (sent to water restoration technician) [facility] M: [phone] O:[phone] Subjective Date of service: 09/09/18 Principal diagnosis: Abscess Interval history: Patient seen and examined. Sitting up in bed. Reports 2 stools today and continued left lower abdominal pain. No fevers. Objective - Exam Narrative Exam: Constitutional: Alert, cooperative. LL abdominal pain. Head, Ears, Nose: Normocephalic, atraumatic. External ears, nose normal Eyes: Conjunctivae/corneas clear. No icterus. No ptosis. Neck: Supple, no meningeal signs Oral: dentition good, no thrush Cardiovascular: S1, S2 normal. Respiratory: Good air entry, clear to auscultation bilaterally GI: Soft, non-tender;, LL abdominal pain and tenderness Musculoskeletal: No pedal edema, no cyanosis. Skin: No rash or abscess. Hem/Lymphatic: No palpable cervical or supraclavicular nodes. No lymphangitis Psych: Mood ok. Affect normal Neurological: Awake, alert, oriented. - Constitutional Vitals: Vital Signs Temp Pulse Resp BP Pulse Ox 98.8 F 85 20 124/77 100 09/09/18 05:20 09/09/18 05:20 09/09/18 05:20 09/09/18 05:20 09/09/18 05:20 Temperature -Last 24 Hours Temperature 98.8 F Temperature 98.6 F Temperature 99.5 F - Labs CBC & Chem 7: 09/06/18 06:39 09/06/18 06:39
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
[2018-09-09 13:33] VITALS: BP 121/69
== END 2018-09-09 21:47 | disposition home or self-care (01) | DRG 372 ==
LOC: ED 12:39 → 3A 18:06
PROVIDERS: ADMIT Internal Medicine; ATTEND Internal Medicine
DX: K65.1 Peritoneal abscess (principal); E44.0 Moderate protein-calorie malnutrition; K57.30 Diverticulosis of large intestine without perforation or abscess without bleeding; N73.9 Female pelvic inflammatory disease, unspecified; E87.6 Hypokalemia; I10 Essential (primary) hypertension; K59.09 Other constipation; D64.9 Anemia, unspecified; D50.9 Iron deficiency anemia, unspecified; K80.80 Other cholelithiasis without obstruction; D17.9 Benign lipomatous neoplasm, unspecified; D25.9 Leiomyoma of uterus, unspecified; G89.29 Other chronic pain; N83.202 Unspecified ovarian cyst, left side; N83.201 Unspecified ovarian cyst, right side; Z68.26 Body mass index [BMI] 26.0-26.9, adult; Z88.1 Allergy status to other antibiotic agents; Z88.8 Allergy status to other drugs, medicaments and biological substances
CPT/HCPCS: 36415; 74177; 76830; 76856; 80048; 80053; 81001; 82747; 83036; 83550; 83690; 83735; 84703; 85025; 87040; 87086; 87116; 87591; G0378; J0692; J1170; J1450; J2270; J2405; J2765; J3480; J7030; J7042; Q9967

== ENCOUNTER 2021-11-06 13:57 | Inpatient (IN) | payer MEDICARE ==
[2021-11-06] MEDS ORDERED: SODIUM CHLORIDE 0.9% 1000 ML 1,000 ML ONE (14:14)
[2021-11-06] MEDS ORDERED: SODIUM CHLORIDE 0.9% 1000 ML 1,000 ML IV ONE ×5 (14:18→18:34)
--- NOTE | 2021-11-06 14:55 | XRay Report ---
CHEST 1 VIEW 11/06/2021 2:36 PM INDICATION / CLINICAL INFORMATION: Altered mental status, tachycardia. COMPARISON: 07/07/2018 FINDINGS: SUPPORT DEVICES: Right IJ port in good position. HEART / MEDIASTINUM: No significant abnormality. LUNGS / PLEURA: Patchy opacities in the right lung. No pneumothorax. ADDITIONAL FINDINGS: No significant additional findings. IMPRESSION: 1. Patchy pulmonary opacities in the right lung, possible multifocal pneumonia. Signer Name: Mayank Mckenzie MD Signed: 11/06/2021 2:50 PM Workstation Name: [id number]
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
[2021-11-06 16:18] LABS: Hematocrit 29.5 % (30.3-42.9); Hemoglobin 9.2 gm/dl (10.1-14.3); Mean Corpuscular HGB Conc 31 % (30-34); Platelet Count 470 K/mm3 (140-440); Red Cell Distribution Width 16.8 % (13.2-15.2)
[2021-11-06 16:21] LABS: INR 1.26 (0.87-1.13)
[2021-11-06 16:22] LABS: Partial Thromboplastin Time 43.2 Sec. (24.2-36.6)
[2021-11-06 16:23] LABS: Mean Corpuscular Volume 69 fl (79-97)
[2021-11-06 16:40] LABS: Free T4 (Free Thyroxine) 1.17 ng/dL (0.76-1.46)
[2021-11-06 16:55] LABS: Albumin 3.3 g/dL (3.9-5); Calcium 9.3 mg/dL (8.4-10.2)
[2021-11-06] MEDS ORDERED: ONDANSETRON 4 MG/2 ML INJ IV ONE (17:04)
[2021-11-06 17:40] LABS: Band Neutrophils # (Manual) 3.5 K/mm3; Basophils % (Manual) 0 % (0.0-1.8); Eosinophils % (Manual) 0 % (0.0-4.3); Giant Platelets Rare; Hypochromasia 2+; Myelocytes # (Manual) 0.1 K/mm3; Platelet Estimate Consistent w Auto; Total Cells Counted 100
[2021-11-06] MEDS ORDERED: VANCOMYCIN 750 MG in SODIUM CHLORIDE 0.9% 500 ML 500 ML IV ONE (17:44)
[2021-11-06] MEDS ORDERED: ACETAMINOPHEN 325 MG TAB PO PRN ×2 (17:53→23:11)
[2021-11-06] MEDS ORDERED: MORPHINE 2 MG/1 ML INJ IV PRN (17:53)
[2021-11-06] MEDS ORDERED: ONDANSETRON 4 MG/2 ML INJ IV PRN ×2 (17:53→23:11)
[2021-11-06 17:56] LABS: Mucus,Urine FEW /HPF
[2021-11-06] MEDS ORDERED: CEFEPIME/NS 2 GM/100 ML 2 GM/100 ML BAG IV ONE (17:56)
[2021-11-06] MEDS ORDERED: VANCOMYCIN PHARMACY TO DOSE IV SCH (18:00)
[2021-11-06 18:19] LABS: Color,Urine Yellow (Yellow)
[2021-11-06 18:38] VITALS: BP 118/74
[2021-11-06] MEDS ORDERED: CYCLOBENZAPRINE 10 MG TAB PO PRN (23:10)
[2021-11-06] MEDS ORDERED: DICYCLOMINE 10 MG CAP PO PRN (23:10)
[2021-11-06] MEDS ORDERED: METOCLOPRAMIDE 10 MG/2 ML INJ IV PRN (23:11)
[2021-11-06] MEDS ORDERED: HYDROmorphone 0.5 MG/0.5 ML INJ IV PRN (23:11)
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
[2021-11-06] MEDS ORDERED: SODIUM CHLORIDE 0.9% 1000 ML 1,000 ML IV SCH (23:15)
[2021-11-06] MEDS ORDERED: FAMOTIDINE 20 MG/2 ML INJ IV SCH (23:45)
[2021-11-07] MEDS ORDERED: cefTRIAXone/NS 2 GM/100 ML 2 GM/100 ML BAG IV SCH (10:00)
--- NOTE | 2021-11-08 09:45 | Electrocardiograph Report ---
[facility] Test Date: 2021-11-06 Test Time: 13:57:50 Pat Name: RADHA THORNE Department: Room: [facility] Gender: F Director Cardiac: KATI : 1970 Requested By: DIVINA KEE Order Number: [id number] Reading MD: Heber Graves Measurements Intervals [place] Rate: 172 P: 74 WA: 177 QRS: 71 QRSD: 64 T: 60 QT: 311 QTc: 527 Interpretive Statements Supraventricular tachycardia Ventricular premature complex No previous ECG available for comparison Electronically Signed On 11-08-2021 9:45:00 EDT by Heber Graves
--- NOTE | 2021-11-08 09:46 | Electrocardiograph Report ---
[facility] Test Date: 2021-11-06 Test Time: 17:11:07 Pat Name: RADHA THORNE Department: Room: [place] [address] Gender: F Weir Fisherman: pooja : 1970 Requested By: DIVINA KEE Order Number: [id number] Reading MD: Heber Graves Measurements Intervals [place] Rate: 144 P: 62 [place]: 185 QRS: 73 QRSD: 71 T: 57 QT: 195 QTc: 302 Interpretive Statements Sinus tachycardia Probable left atrial enlargement nonspecific st-t Compared to ECG 11/06/2021 13:57:50 Supraventricular tachycardia no longer present Ventricular premature complex(es) no longer present Electronically Signed On 11-08-2021 9:46:06 EDT by Heber Graves
--- NOTE | 2021-11-08 13:11 | Discharge Summary ---
Providers - Providers Date of Admission: 11/06/21 17:53 Date of discharge: 11/07/21 Attending physician: YEN PAUL 11/06/21 18:44 Consult to Physician [CONS] Urgent Comment: Consulting Provider: RAUL DUGAN Physician Instructions: Reason For Exam: tachycardia 11/06/21 19:47 Consult to Case Management [CONS] Urgent Services Needed at Discharge: Public Relations Senior Associate Notified:: n Additional Physician Instructions: stage 4 colon cancer, hospice candidate. please evaluate for hospice placement upon discharge Primary care physician: ARELIS GOMEZ Hospitalization Condition: Stable Hospital course: 51-year-old female with history of colon cancer with metastasis comes to the hospital for progressive deterioration over the last 2 weeks. Decreased p.o. intake and vomiting. Son at the bedside. Patient was follows with her oncologist at [facility]. His name is Dr. Redmond. Patient is alert to self place but not the year.. Patient is not clear about her DNR status. Patient wants hospice care. After extensive discussion with the son--family has agreed for inpatient hospice taking into consideration the patient's status and prognosis being very bad. They want only comfort care. - Patient Problems (1) Failure to thrive in adult Status: Acute Plan to address problem: Secondary to colon cancer and metastasis. Poor p.o. intake. Prognosis is very poor. 's discussed with son and family about hospice care Son willing to accept hospice care. Case management and also was informed. (2) Volume depletion Status: Acute Plan to address problem: Patient is severely volume depleted secondary to poor p.o. intake. IV fluids for now. 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 Family acknowledges care plan. Care plan +30 minutes. Patient is DNR. Initiated on hospice placement. Discharge planning issues Patient being admitted to hospice--inpatient Disposition: 04 [facility] Final Discharge Diagnosis (Prints w/discharge instructions): Failure to thrive. Severe dehydration. CONNOR. Colon cancer with metastasis. 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 Status: Acute (4) Advance care planning Status: Acute Core Measure Documentation - Palliative Care Palliative Care/ Comfort Measures: Hospice Care - Core Measures Any of the following diagnoses?: none Exam - Constitutional Vitals: Temp Pulse Resp BP Pulse Ox 97.9 F 153 H 23 118/74 98 11/06/21 17:54 11/06/21 18:30 11/06/21 18:30 11/06/21 18:30 11/06/21 18:30 General appearance: Present: severe distress, well-nourished - EENT Eyes: Present: PERRL ENT: hearing intact, clear oral mucosa - Neck Neck: Present: supple, normal ROM - Respiratory Respiratory effort: normal Respiratory: bilateral: CTA - Cardiovascular Heart rate: 160 Rhythm: regular Heart Sounds: Present: S1 & S2. Absent: rub, click - Extremities Extremities: pulses symmetrical, No edema Peripheral Pulses: within normal limits - Abdominal General gastrointestinal: Present: soft, non-tender, non-distended, normal bowel sounds Female genitourinary: Present: normal - Integumentary Integumentary: Present: clear, warm, dry - Musculoskeletal Musculoskeletal: gait normal, strength equal bilaterally - Psychiatric Psychiatric: appropriate mood/affect, intact judgment & insight - Neurologic Neurologic: CNII-XII intact, moves all extremities Plan Activity: advance as tolerated Diet: clear liquids, advance as tolerated Follow up with: ARELIS GOMEZ MD [Primary Care Provider] - 7 Days
== END 2021-11-07 00:53 | disposition hospice, inpatient (51) | DRG 872 ==
LOC: ED 13:57 → 4A 17:53
PROVIDERS: ADMIT Internal Medicine; ATTEND Internal Medicine
DX: A41.9 Sepsis, unspecified organism (principal); C18.9 Malignant neoplasm of colon, unspecified; C77.2 Secondary and unspecified malignant neoplasm of intra-abdominal lymph nodes; N17.9 Acute kidney failure, unspecified; E86.0 Dehydration; Z66 Do not resuscitate; I10 Essential (primary) hypertension; E86.9 Volume depletion, unspecified; R62.7 Adult failure to thrive; Z51.5 Encounter for palliative care; Z88.6 Allergy status to analgesic agent; Z88.8 Allergy status to other drugs, medicaments and biological substances
CPT/HCPCS: 36415; 71045; 80053; 81001; 82140; 83735; 84439; 84443; 85007; 85025; 85610; 85730; 87040; 93005; 99291; G0378; J0690; J0692; J1170; J2270; J2405; J3370; J7030; J7040